=== PATIENT | female | born 1945 | race Caucasian/White ===

== ENCOUNTER 2020-09-04 13:45 | Outpatient (CLI) | payer MEDICARE, SELFPAY ==
--- NOTE | ~2020-09-04 | CT_ITS ---
EXAMINATION: CT abdomen pelvis w con INDICATION: Abdominal pain TECHNIQUE: Computed tomographic images of the abdomen and pelvis were obtained after the administrati on of 100 cc of Omnipaque 350 intravenous contrast. The dose-length product (DLP) was 945.38 mGy-cm. Automated exposure control and iterative reconstruction technique were employed. COMPARISON: 08/02/2004 FINDINGS: Minimal dependent atelectasis is present in the lung bases. The heart size is normal. The g allbladder is surgically absent. There is mild enlargement of the common bile duct and central intrah epatic ducts which is likely due to post cholecystectomy state. There is a 10 mm cyst in the liver do me. The spleen, pancreas, and adrenal glands are normal. The right kidney is unremarkable. Cysts of t he left kidney measure up to 10 mm. No pathologically enlarged abdominal or pelvic lymph nodes are id entified. There is no free intraperitoneal gas or evidence of bowel obstruction. Colonic diverticulos is is present without evidence of diverticulitis. The appendix is normal. There is a 3.3 x 3.1 cm fat attenuation mass of the mid ascending colon. There is mild lumbar spondylosis. IMPRESSION: 1. No CT correlate for the patient's symptoms. 2. Fat attenuation mass of the mid ascending colon, consistent with a lipoma. Reviewed, dictated and finalized at location A.
== END 2020-09-04 13:46 | disposition home or self-care (01) ==
PROVIDERS: PCP Family Medicine; Visit Provider Family Medicine
DX: R93.89 Abnormal findings on diagnostic imaging of other specified body structures (principal)
CPT/HCPCS: 74177; Q9967

== ENCOUNTER 2022-08-26 11:58 | Outpatient (CLI) | payer MEDICARE, SELFPAY ==
--- NOTE | ~2022-08-26 | US_ITS ---
EXAMINATION: US FNA w image guidance DATE: 08/26/2022 13:22 INDICATION: Neoplasm of unspecified behavior of digestive system. Left parotid mass. TECHNIQUE: The procedure and its benefits and risks were discussed with the patient. Risks specifically discusse d included bleeding. The patient verbalized understanding of the risks and agreed to proceed. The lef t face was prepped and draped in the usual sterile manner. 1% lidocaine was used for local anesthesi a. 6 passes were made with a 25G needle into the lesion under ultrasound guidance. There were no im mediate complications. FINDINGS: Grayscale ultrasound images demonstrate needles advanced into a 2.6 x 1.9 x 2.8 cm mass in left parot id gland for biopsy. IMPRESSION: 1. Ultrasound-guided fine needle aspiration of a mass in left parotid gland. Reviewed, dictated and finalized at location A.
== END 2022-08-26 11:59 | disposition home or self-care (01) ==
PROVIDERS: PCP Family Medicine; Visit Provider Otolaryngology
DX: D49.0 Neoplasm of unspecified behavior of digestive system (principal)
CPT/HCPCS: 10005; 88173; 88305

== ENCOUNTER 2022-09-03 07:56 | Outpatient (CLI) | payer MEDICARE, SELFPAY ==
--- NOTE | ~2022-09-03 | CT_ITS ---
EXAMINATION: CT soft tissue neck w con DATE: 09/03/2022 08:31 INDICATION: Neck mass. TECHNIQUE: Computed tomography (CT) of the neck was performed with 75 mL Omnipaque-350 intravenous co ntrast. Automated exposure control and iterative reconstruction technique were employed. The dose-basia gth product was 605.49 mGy-cm. COMPARISON: Ultrasound 01/10/2022 FINDINGS: There are likely changes of ocular lens replacement surgeries. In the superficial left paro tid gland, there is a 2.5 x 2.7 cm mass. A skin marker overlies this area. There are no pathologicall y enlarged lymph nodes. There is plaque in the proximal internal carotid arteries with less than 50% stenosis relative to normal distal artery lumen diameters. There is severe cervical spondylosis. IMPRESSION: 1. 2.7 cm mass in superficial left parotid gland. Fine-needle aspiration on 08/26/2022 demonstrated no nspecific cytology findings where the pathologist favored pleomorphic adenoma. Reviewed, dictated and finalized at location A. IMPRESSION: 1. 2.7 cm mass in superficial left parotid gland. Fine-needle aspiration on 08/01 demonstrated nonspecific cytology findings where the pathologist favored pleomorphic adenoma.
[2022-09-03 08:21] LABS: Estimated Glomerular Filt Rate 54
== END 2022-09-03 07:57 | disposition home or self-care (01) ==
PROVIDERS: PCP Family Medicine; Visit Provider Otolaryngology
DX: D49.0 Neoplasm of unspecified behavior of digestive system (principal)
CPT/HCPCS: 70491; Q9967

== ENCOUNTER → 2023-03-06 10:49 | Outpatient (CLI) | payer MEDICARE, SELFPAY ==
--- NOTE | ~2023-03-06 | CT_ITS ---
EXAMINATION: CT abdomen pelvis w con DATE: 03/06/2023 11:20 INDICATION: Unspecified abdominal pain. TECHNIQUE: Computed tomography (CT) of the abdomen and pelvis was performed with 100 mL Omnipaque 350 intravenous contrast. Automated exposure control and iterative reconstruction technique were employe d. The dose-length product was 915.18 mGy-cm. COMPARISON: CT abdomen pelvis 09/04/20 FINDINGS: The visualized portions of the lung bases demonstrate mild atelectasis. No pleural effusion . Cardiomegaly is noted. No pericardial effusion. There is a 10 mm cyst in the liver. There are spring es of cholecystectomy. The spleen, pancreas, and adrenal glands are normal. There is cortical thinnin g of the kidneys. There is diverticulosis of the colon without evidence of diverticulitis. There are no dilated loops of bowel. The appendix is normal. There is a lipoma in the ascending colon. There ar e no pathologically enlarged lymph nodes. There is no free intraperitoneal fluid. There is mild lumba r spondylosis. IMPRESSION: 1. No etiology for the patient's symptoms. Reviewed, dictated and finalized at location A.
[2023-03-06 11:12] LABS: Estimated Glomerular Filt Rate > 60
== END ==
PROVIDERS: PCP Family Medicine; Visit Provider Family Medicine
DX: R10.9 Unspecified abdominal pain (principal); R63.4 Abnormal weight loss; R53.83 Other fatigue; D51.0 Vitamin B12 deficiency anemia due to intrinsic factor deficiency; D64.9 Anemia, unspecified; E55.9 Vitamin D deficiency, unspecified
CPT/HCPCS: 74177; Q9967

== ENCOUNTER 2023-08-18 09:30 | Outpatient (CLI) | payer MEDICARE, SELFPAY ==
--- NOTE | ~2023-08-18 | XR_ITS ---
EXAMINATION: XR abdomen/kub 1V INDICATION: Left lower quadrant pain TECHNIQUE: Supine views of the abdomen were obtained on 2 radiographs. COMPARISON: CT, 03/06/2023 FINDINGS: The bowel gas pattern is nonspecific. There are no dilated loops of bowel. No free intraper itoneal gas is identified. The visualized lung bases are clear. Cholecystectomy clips are noted. Ther e is mild lumbar spondylosis. IMPRESSION: 1. No radiographic correlate for the patient's symptoms. Reviewed, dictated and finalized at location L.
== END 2023-08-18 09:31 | disposition home or self-care (01) ==
PROVIDERS: PCP Family Medicine; Visit Provider Nurse Practitioner
DX: R10.32 Left lower quadrant pain (principal); R11.0 Nausea
CPT/HCPCS: 74018

== ENCOUNTER 2023-09-04 00:53 | Day surgery (SDC) | payer MEDICARE, SELFPAY ==
[2023-08-26 12:54] VITALS: BMI 35.2
--- NOTE | 2023-09-03 15:24 | P.HP_ITS ---
History of Present Illness History of Present Illness Consent: Risks, benefits, and alternatives have been discussed and questions answered. Patient agrees to proceed with procedure. Chief complaint: epigastric pain, nausea Narrative: Phyllis Nixon is a 78 year old female ?has a history of fecal impaction August 2022 at [facility] [place] and had manual disimpaction and enema. Has hard pellet like stools with LLQ abdominal pain-pain radiates into left side/flank- has rectal pain and burning after BM. She also reports having to rock back and forth on toilet to help facilitate. LLQ pain improves if she has good BM but doesn't happen frequently. She has been having LLQ pain and constipation for greater than 10 years. Had episode of vomiting with LLQ pain a few weeks ago. Denies any fevers. Denies hx of diverticulitis. She does take hydrocodone 5/325 mg nightly for left knee pain. Also reports epigastric burning worse with spicy foods and nausea upon awakening which is somewhat new symptom as well.? Denies NSAIDs. Review of Systems Review of Systems: All systems reviewed & are unremarkable except as noted in HPI and below PMFSH Past Medical History Medical History Abnormal crack or tear of anus Epigastric burning sensation Irritable bowel syndrome with constipation LLQ abdominal pain Nausea Rectal pain Family History Family History Mother Diabetes mellitus Thyroid disorder Sibling Diabetes mellitus Grandparent Diabetes mellitus Thyroid disorder Father Heart disease Thyroid disorder Social History Social History Smoking status: Never smoker Alcohol intake: never Substance use: never Substance use type: does not use Living arrangements: with family Spiritual care concerns: No Meds Home Medications and Allergies Home Medications Medication Instructions Recorded Confirmed Type hydrocodone 5 mg-acetaminophen 325 1 tablet PO QHS PRN Pain 08/14/22 08/26/23 History mg tablet lorazepam 1 mg tablet 1 mg PO DAILY PRN Anxiety 08/14/22 08/26/23 History hydrocortisone 2.5 % topical cream 1 applic RECTAL BID #30 grams 08/18/23 08/26/23 Rx with perineal applicator omeprazole 40 mg capsule,delayed 40 mg PO DAILY #30 caps 08/18/23 08/26/23 Rx release levothyroxine 125 mcg tablet 125 mcg PO DAILY 08/26/23 08/26/23 History Allergies Allergy/AdvReac Type Severity Reaction Status Date / Time No Known Allergies Allergy Verified 09/04/23 09:32 Exam Resp: Auscultation: clear to auscultation bilaterally Cardio: Rate: regular rate Rhythm: regular rhythm GI: GI Palp: Yes Soft to palpation and No Tenderness to palpation present (GI) Assessment and Plan Assessment and plan (1) Epigastric burning sensation: Code(s): R10.13 - Epigastric pain Status: Acute Assessment and Plan: EGD with possible biopsy or dilatation or cautery. (2) Change in bowel habits: Code(s): R19.4 - Change in bowel habit Status: Acute Assessment and Plan: Colonoscopy with possible biopsy or polypectomy or cautery or injection of substances.
[2023-09-04 09:32] VITALS: BP 125/75; PULSE 90; RESP 18; TEMP 36.2; O2SAT 100
[2023-09-04] MEDS: LACTATED RINGERS 1,000 ML 150 ML IV CONT (09:49)
--- NOTE | 2023-09-04 10:44 | P.PNAN_ITS ---
Anes - Initial Pre Proc Eval Procedure: Operation Date: 09/04/23 11:15 Proposed Procedures p Esophagogastroduodenoscopy & Colonoscopy - Herb Duggan MD Date/Time: 09/04/23 10:44 Surgeon: Herb Duggan MD Pre Op Diagnosis: epigastric pain, nausea Patient Data Age: 78 Gender: F Height: 1.63 m Weight: 93.7 kg Last Vital Signs Temp 97.1 F L 09/04/23 09:32 Pulse 90 09/04/23 09:32 Resp 18 09/04/23 09:32 BP 125/75 09/04/23 09:32 Pulse Ox 100 09/04/23 09:32 O2 Del Method Room Air 09/04/23 09:32 Allergies Allergy/AdvReac Type Severity Reaction Status Date / Time No Known Allergies Allergy Verified 09/04/23 09:32 Home Medications Medication Instructions Recorded Confirmed Type hydrocodone 5 mg-acetaminophen 325 1 tablet PO QHS PRN Pain 08/14/22 08/26/23 History mg tablet lorazepam 1 mg tablet 1 mg PO DAILY PRN Anxiety 08/14/22 08/26/23 History hydrocortisone 2.5 % topical cream 1 applic RECTAL BID #30 grams 08/18/23 08/26/23 Rx with perineal applicator omeprazole 40 mg capsule,delayed 40 mg PO DAILY #30 caps 08/18/23 08/26/23 Rx release levothyroxine 125 mcg tablet 125 mcg PO DAILY 08/26/23 08/26/23 History Patient hx anesthesia problems: none Family hx anesthesia problems: none Results Review: All pre-operative results and documents have been reviewed as part of the pre- operative evaluation. [facility] Past Medical History Medical History Abnormal crack or tear of anus Epigastric burning sensation Irritable bowel syndrome with constipation LLQ abdominal pain Nausea Rectal pain Family History Family History Mother Diabetes mellitus Thyroid disorder Sibling Diabetes mellitus Grandparent Diabetes mellitus Thyroid disorder Father Heart disease Thyroid disorder Social History Social History Smoking status: Never smoker Alcohol intake: never Substance use: never Substance use type: does not use Living arrangements: with family Spiritual care concerns: No Anes - Eval Final PreProcedure Day of Procedure 09/04/23 10:44 Patient weight: obese Heart: regular rate and rhythm Lungs: clear to auscultation Airway: Mallampati scale class II Neurological: alert and oriented Last oral intake: >/= 8 hours ASA classification: III Emergent: no Anesthetic plan: proceed Anesthesia type and monitoring: general GIVS and standard monitoring Results Review: All pre-operative results and documents have been reviewed as part of the pre- operative evaluation. Informed Consent: The patient's anesthetic plan and its attendant risks and benefits were discussed with the patient/family/POA. Questions were solicited and answers provided to the satisfaction of the patient/family/POA.
--- NOTE | 2023-09-04 11:09 | SUR.OPER ---
EGD: [id number] COLON: Start 1114
--- NOTE | 2023-09-04 11:28 | SUR.OPER ---
1128-Switched to EGD scope (235).
--- NOTE | 2023-09-04 11:34 | SUR.OPER ---
Attempted colonoscopy. Unable to get past sigmoid colon.
[2023-09-04 11:36] VITALS: BP 134/81; PULSE 75; RESP 21; O2SAT 99
[2023-09-04 11:46] VITALS: BP 139/81; PULSE 75; RESP 20; O2SAT 99
[2023-09-04 11:56] VITALS: BP 146/94; PULSE 74; RESP 22; O2SAT 99
== END 2023-09-04 12:08 | disposition home or self-care (01) ==
PROVIDERS: PCP Family Medicine; Visit Provider Internal Medicine Gastroenterology
PROC: 0DJ08ZZ Inspection of Upper Intestinal Tract, Via Natural or Artificial Opening Endoscopic (ICD-10-PCS; CPT 43235; principal; 2023-09-04 11:15)
DX: K21.00 Gastro-esophageal reflux disease with esophagitis, without bleeding (principal); K58.1 Irritable bowel syndrome with constipation; K57.30 Diverticulosis of large intestine without perforation or abscess without bleeding; K63.89 Other specified diseases of intestine; E66.9 Obesity, unspecified; Z68.35 Body mass index [BMI] 35.0-35.9, adult; Z79.891 Long term (current) use of opiate analgesic
CPT/HCPCS: 43239; 45378; 88305; J2704; J7120

== ENCOUNTER 2024-04-04 15:38 | Emergency (ER) | payer MEDICARE, SELFPAY ==
--- NOTE | ~2024-04-04 | XR_ITS ---
EXAMINATION: XR foot RT min 3V DATE: 04/04/2024 16:24 INDICATION: Fall with swelling, bruising and pain at the right foot TECHNIQUE: Dorsoplantar, two oblique and lateral views of the right foot were obtained. COMPARISON: None. FINDINGS: Irregular cortical contour suggesting old healed fracture at the proximal metadiaphyseal region of th e fifth proximal phalanx. There is a small cortical fragment at the lateral aspect of the midfoot wit h suggestion of an adjacent donor site at the lateral margin of the cuboid which could represent an a vulsion fracture of the cuboid footplate of the dorsal calcaneocuboid ligament. Small fracture anteri or process of the calcaneus is considered less likely. There appears be an additional potential flake -like avulsion fracture at the dorsal margin of the navicula with differential including small enthes ophyte. No other lesions suspicious for acute fracture identified. 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 Large Achilles calcaneal spur. Addition al small enthesophyte at the lateral base of the fifth metatarsal. Soft tissue swelling at the latera l midfoot. IMPRESSION: 1. Suggestive of a small distracted avulsion fracture of the cuboid footplate of the dorsal calcaneoc uboid ligament. 2. Possible additional small capsular avulsion fracture versus enthesophytes at the dorsal aspect of the navicula. Reviewed, dictated and finalized at location A. IMPRESSION: 1. Suggestive of a small distracted avulsion fracture of the cuboid footplate o f the dorsal calcaneocuboid ligament. 2. Possible additional small capsular avulsion fracture versus enthesophytes at the dorsal aspect of the navicula.
--- NOTE | ~2024-04-04 | XR_ITS ---
EXAM: XR knee LT 3V DATE: 04/04/2024 16:24 HISTORY: fall, pain; best imaging . COMPARISON: 03/16/2017. FINDINGS: Uncomplicated left total knee arthroplasty hardware. Decreased mineralization. No fracture or dislocation. No lytic or blastic lesion. Patellar and quadriceps enthesopathy. No erosion or birgit osteal change. Soft tissues within normal limits. IMPRESSION: No acute osseous finding in the left knee. Reviewed, dictated and finalized at location K.
[2024-04-04 15:56] VITALS: BP 122/69; PULSE 90; RESP 17; TEMP 36.6; O2SAT 99
--- NOTE | 2024-04-04 18:03 | ED.FALL ---
HPI - Fall General Chief Complaint: Fall Stated Complaint: fall Time Seen by Provider: 04/04/24 16:52 Source: patient Mode of arrival: ambulatory Limitations: no limitations History of Present Illness HPI Narrative: Patient is a 79-year-old female who presents the ED with report of a fall. Patient reports he tripped over 1 of the concrete steps in her garage and fell. She landed on her left knee and twisted her right foot in the process. She did not hit her head or lose consciousness. She complains of most of the pain to her right lateral foot. Has been able to bear weight, but has pain with this. Has required using a cane for assistance with ambulation. Denies any numbness or tingling. She did also sustain an abrasion to her left hand, but denies pain. Tetanus status unknown. Related Data Home Medications Medication Instructions Recorded Confirmed hydrocodone 5 mg-acetaminophen 325 1 tablet PO QHS PRN Pain 08/14/22 10/01/23 mg tablet levothyroxine 125 mcg tablet 125 mcg PO DAILY 08/26/23 10/01/23 Allergies Allergy/AdvReac Type Severity Reaction Status Date / Time No Known Allergies Allergy Verified 04/04/24 15:38 Review of Systems Review of Systems: CONSTITUTIONAL: Denies fever, chills, or sweats. MUSCULOSKELETAL: See HPI. NEUROLOGIC: Denies HI, LOC, headache, dizziness, numbness, or weakness. All systems reviewed & are unremarkable except as noted in HPI and below PMFSH Past Medical History Medical History Abnormal crack or tear of anus Epigastric burning sensation Irritable bowel syndrome with constipation LLQ abdominal pain Nausea Rectal pain Family History Family History Mother Diabetes mellitus Thyroid disorder Sibling Diabetes mellitus Grandparent Diabetes mellitus Thyroid disorder Father Heart disease Thyroid disorder Social History Social History Smoking status: Never smoker Alcohol intake: never Substance use: never Substance use type: does not use Living arrangements: with family Spiritual care concerns: No Exam Narrative: GENERAL: Elderly, obese with BMI of 34.4, non-toxic, in no acute distress. HEAD: Normocephalic, atraumatic. RESPIRATORY: Airway patent, respirations nonlabored. CARDIOVASCULAR: Regular rate and rhythm without murmurs, rubs, or gallops. Pedal pulses 2+ and intact bilaterally. MUSCULOSKELETAL: Moves all extremities. No gross deformities. Mild swelling to left anterior knee with ecchymosis present. Tenderness along medial joint spaces of left knee. Sensation intact. Bruising and swelling noted to right foot dorsal lateral surface, with tenderness midfoot laterally. No significant tenderness along medial or lateral malleoli of R ankle. Sensation intact. Capillary refill intact. SKIN: Warm, dry, normal color. NEURO: A&O X3. Speech clear. Cranial nerves II-XII grossly intact. No ataxic movements. PSYCHIATRIC: Appropriate mood and affect. Normal interaction. Course Vital Signs Vital signs: Vital Signs Temperature 97.9 F 04/04/24 15:56 Pulse Rate 90 04/04/24 15:56 Respiratory Rate 17 04/04/24 15:56 Blood Pressure 122/69 04/04/24 15:56 Pulse Oximetry 99 04/04/24 15:56 Oxygen Delivery Room Air 04/04/24 15:56 Temperature 97.9 F 04/04/24 15:56 Pulse Rate 74 04/04/24 19:35 Respiratory Rate 15 04/04/24 19:35 Blood Pressure 117/64 04/04/24 19:35 Pulse Oximetry 97 04/04/24 19:35 Oxygen Delivery Room Air 04/04/24 15:56 MDM - Fall MDM Narrative Medical decision making narrative: Patient presented to ED status post ground level mechanical fall. Patient?s injury is consistent with musculoskeletal etiology. No signs of neurologic or vascular compromise on physical examination. Compartments are soft withou
[2024-04-04 19:35] VITALS: BP 117/64; PULSE 74; RESP 15; O2SAT 97
== END 2024-04-04 19:36 | disposition home or self-care (01) ==
PROVIDERS: Emergency Provider Physician Assistant; PCP Family Medicine
DX: S92.211A Displaced fracture of cuboid bone of right foot, initial encounter for closed fracture (principal); S92.251A Displaced fracture of navicular [scaphoid] of right foot, initial encounter for closed fracture; W01.0XXA Fall on same level from slipping, tripping and stumbling without subsequent striking against object, initial encounter
CPT/HCPCS: 29515; 73562; 73630; 99284

== ENCOUNTER 2024-08-22 13:45 | Outpatient (CLI) | payer MEDICARE, SELFPAY ==
--- NOTE | ~2024-08-22 | MR_ITS ---
EXAMINATION: MR brain/brain stem wo/w con DATE: 08/22/2024 14:36 INDICATION: Transient visual loss left eye. TECHNIQUE: Magnetic resonance imaging (MRI) of the brain and brainstem was performed without and with 19 mL MultiHance intravenous contrast. COMPARISON: None. 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 There are scattered areas of nonspecific i ncreased T2-weighted signal intensity in the cerebral white matter. There is no intracranial hemorrha ge, acute infarction, or abnormal intracranial mass lesion. The ventricles are normal in size. There are likely changes of ocular lens replacement surgeries. There is mild mucosal thickening in the para nasal sinuses. The mastoid air cells are normal. IMPRESSION: 1. 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 2. Mild nonspecific cerebral white matter disease, which likely represents chronic small vessel ische tyler disease. Reviewed, dictated and finalized at location A. IMPRESSION: 1. 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 2. Mild nonspecific cerebral white matter disease, which likely represents nut tapper kofi small vessel ischemic disease.
== END 2024-08-22 13:46 | disposition home or self-care (01) ==
LOC: MICIMG 13:45
PROVIDERS: PCP Family Medicine; Visit Provider Family Medicine
DX: H53.122 Transient visual loss, left eye (principal); R93.0 Abnormal findings on diagnostic imaging of skull and head, not elsewhere classified
CPT/HCPCS: 70553; A9577

== ENCOUNTER → 2024-09-26 11:29 | Outpatient (REF) | payer MEDICARE, SELFPAY | LOC: ANHLAB 11:29 | PROVIDERS: PCP Family Medicine; Visit Provider Plastic Surgery | DX: L72.3 Sebaceous cyst (principal) | CPT/HCPCS: 88305 ==

== ENCOUNTER 2024-10-14 08:30 | Outpatient (CLI) | payer MEDICARE, SELFPAY ==
--- NOTE | ~2024-10-14 | CT_ITS ---
CT of the Abdomen and Pelvis: Indication: Abdominal pain Technique: 2.5 mm axial scans were obtained through the abdomen and pelvis following intravenous adm inistration of 100 cc of Omnipaque 350. Dose reduction technique was used on this scan by utilizing a utomated exposure control and iterative reconstruction technique. The dose-length product (DLP) was 8 79.96 mGy-cm. COMPARISON: 03/06/2023 Findings: Scans through the lung bases are unremarkable. The liver, spleen, pancreas, adrenals and kidneys are within normal limits. Cholecystectomy clips are present. There are atherosclerotic calcifications of the aorta. No lymphadenopathy. No bowel obstruction or bowel wall thickening. There is sigmoid diverticulosis. Images through the pelvis were performed. Urinary bladder unremarkable. No pelvic mass seen. Status p ost hysterectomy. No ascites. Impression: No acute abnormalities seen. Reviewed, dictated and finalized at location . MENT CLERK Impression: No acute abnormalities seen.
[2024-10-14 09:00] LABS: Estimated Glomerular Filt Rate 54
== END 2024-10-14 08:31 | disposition home or self-care (01) ==
LOC: MICIMG 08:31
PROVIDERS: PCP Family Medicine; Visit Provider Family Medicine
DX: R10.9 Unspecified abdominal pain (principal)
CPT/HCPCS: 74177; Q9967

== ENCOUNTER 2025-05-03 08:22 | Emergency (ER) | payer MEDICARE, SELFPAY ==
--- NOTE | ~2025-05-03 | XR_ITS ---
EXAMINATION: XR chest 1V portable 05/03/2025 09:54 INDICATION: Dyspnea PROCEDURE: AP portable chest COMPARISON: 01/18/2011 FINDINGS: The lungs are clear. The cardiomediastinal silhouette is within normal limits. There are no pleural effusions. There is no pneumothorax suspected. IMPRESSION: 1: NO ACUTE CARDIOPULMONARY DISEASE. Reviewed, dictated and finalized at location A.
--- NOTE | 2025-05-03 08:24 | ECG_ITS ---
Test Date: 2025-05-03 08:30:57 Measurements Intervals [place] Rate: 80 P: 61 ND: 140 QRS: 70 QRSD: 145 T: 68 QT: 427 QTc: 494 Interpretive Statements SINUS RHYTHM RIGHT BUNDLE BRANCH BLOCK BASELINE ARTIFACT- I, II, III, AVR, AVL, AVF, V4-V6 ABNORMAL ECG No previous ECG available for comparison Electronically Signed On 05-03-2025 08:44:59 CDT by Donovan Melchor D.O.
[2025-05-03 08:26] VITALS: BP 144/71; PULSE 77; RESP 20; TEMP 36.5; O2SAT 98
--- OUTSIDE RECORDS SUMMARY | 2025-05-03 08:26 | XMS_ITS | Clinical Summary ---
Author Organization [facility] Address [address] [place] [address] Care Team Providers Care Scrap Charger Name Role Phone Nesha Yi MD Unavailable [phone] Source Comments [facility],non-[facility] Affiliates and Associated Physician Practices is amultiple site organization consisting of ambulatory clinics and hospital sitesin [place], [place], [place] and [place]. This disclosure is being madepursuant to the Care Everywhere program and may not contain all information available regarding this patient. Last updated 18.[facility] Allergies Active Allergy Reactions Criticality Noted Date Comments Adhesive Sensitivity 11/26/2017 Causes bruising Choline Fenofibrate Unknown 08/08/2011 Medications * Be aware that medications may not be up to date on this document. Alwaysverify current medications with the patient. HYDROcodone-ac etaminophen (Hull) 5-325 MG tablet Take 1 (one) tablet by mouth every 6 hours as needed for Pain Active acetaminophen (Tylenol) 325 MG tablet Take 2 (two) tablets by mouth every 6 hours Maximum allowable Acetaminophen amount = 4 Grams (4000 mg) / 24 hours. 3 Active albuterol HFA (Proventil; Ventolin; Proair) 108 (90 Base) MCG/ACT inhaler Take 2 (two) puffs by mouth as needed 2 Active levothyroxine (Synthroid) 75 MCG tablet Take 1 (one) tablet by mouth once daily Active LORazepam (Ativan) 1 MG tablet Take 1 (one) tablet by mouth as needed Active ALPRAZolam (Xanax) 0.25 MG tablet alprazolam 0.25 mg tablet TAKE 1 TABLET TWICE A DAY NEEDED Active doxycycline hyclate (Vibramycin) 100 MG capsule doxycycline hyclate 100 mg capsule Take 1 capsule twice a day by oral route for 7 days. Active Active Problems Problem Noted Date Diagnosed Date Parotid mass 12/11/2022 Primary osteoarthritis of right knee 05/19/2019 Infection of prosthetic left knee joint 12/15/19 18 Status post total knee replacement using cement, left 12/08/2017 Primary osteoarthritis of left knee 09/11/2017 Immunizations Immunization Administration Dates Next Due Loaded Pocket primary monoval ent 12+ yr 0.3mL Purple cap 06/03/2022,02/21/2021,02/21/2021,2020,01/31/2021 INFLUENZA VACCINE 09/10/2020, 7,10/08/2016,2015 INFLUENZA VACCINE, HIGH-DOSE , QUADR. (FLUZONE HIGH-DOSE QUADRIVALENT; 65Y+), 0.7 ML (HD-IIV4) 08/27/2021,10/04/2019,09/14/2018,2016,10/08/2016,10/02/2016 INFLUENZA VACCINE, QUADR. (F LUZONE; FLULAVAL; FLUARIX; AFLURIA QUADRIVALENT; 6MO+), 0.5 ML (IIV4) 10/15/2015 INFLUENZA VACCINE, TRIV. (FL UZONE; FLULAVAL; FLUARIX; AFLURIA TRIVALENT; 6MO+), 0.5 ML (IIV3) 09/14/2013 TDAP, HISTORIC VACCINE 03/30/2017 Social History Tobacco Use Types Packs/Day Years Used Date Smoking Tobacco: Never Smokeless Tobacco: Never Tobacco Cessation:Counseling Given: Not Answered Alcohol Use Standard Drinks/Week Comments No 0 (1 standard drink = 0.6 oz pur e alcohol) socially AUDIT-C Answer Date Recorded Q1: How often do you have a drink containing alcohol? Never 12/11/2022 Q2: How many drinks containi ng alcohol do you have on a typical day when you are drinking? Patient does not drink Q3: How often do you have si x or more drinks on one occasion? 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 Gender Identity Not on file Sexual Orientation Not on file Last Filed Vital Signs Vital Sign Reading Time Taken Comments Blood Pressure 136/83 02/27/2023 11:27 AM CDT Pulse 85 02/27/2023 11:27 AM CDT Temperature 36.6 C (97.8 F) 12/12/2022 11:24 AM SENIOR CREDIT OFFICER Respiratory Rate 18 12/12/2022 11:24 AM SENIOR CREDIT OFFICER Oxygen Saturation 98% 12/12/2022 11:24 AM SENIOR CREDIT OFFICER Inhaled Oxygen Concentration - - Weight 93 kg (205 lb) 02/27/2023 11:27 AM CDT Height 162.6 cm (5' 4) 02/27/2023 11:27 AM CDT Body Mass Index 35.19 02/27/2023 11:27 AM CDT Plan of Treatment Health Maintenance Due Date Last Done Comments BONE DENSITY TESTING 1945 PNEUMOCOCCAL VACCINE 50+ (1 of 1 - PCV) 01/31/1996 ZOSTER VACCINE (1 of 2) 01/31/1996 Respiratory Syncytial Virus (RSV) Vaccine Pt: or over 60 yrs (1 - 1-dose 75+ series) 2021 COVID-19 VACCINE ( season) 2024 06/03/2022, 02/21/2021, 02/21/2021, Additional history exists DEPRESSION SCREENING 11/30/2024 MEDICARE AWV CALENDAR YEAR 2024 INFLUENZA VACCINE (Season Ended) 2025 08/27/2021, 09/10/2020, 10/04/2019, Additional history exists DTAP/TDAP/TD VACCINES (2 - Td or Tdap) 03/30/2027 03/30/2017 HEPATITIS B VACCINE Aged Out No longe r eligible based on patient's age to complete this topic HIB VACCINE Aged Out No longer eligi ble based on patient's age to complete this topic HPV VACCINE Aged Out No longer eligi ble based on patient's age to complete this topic MENINGOCOCCAL (Group B) VACCINE SHARED DECISION-MAKING Aged Out No longer eligible based on patient's age to complete this topic MENINGOCOCCAL GROUPS A/C/Y/W VACCINE Aged Out No longer eligible based on patient's age to complete this topic Medical Devices Implanted Type Area Knot Borer Device Identifier Shelf Expiration Date Model / Serial / Lot Cmnt Bone Plc R 40gm Grn Implanted:Qty: 1 on 11/26/2017 by Vishnu Newell MD at [facility][note 3] Left: Knee [employer] 05/29/2022 [id number] / / [id number] Cmpnt Ptlr Ovl [id number] Gns2 Uhmwpe Kn Implanted:Qty: 1 on 11/26/2017 by Vishnu Newell MD at [facility][note 3] Left: Knee [employer] 09/09/2027 [id number] / / [id number] Bsplt Tib Journey 3 Kn Lt Implanted:Qty: 1 on 11/26/2017 by Vishnu Newell MD at [facility][note 3] Left: Knee [employer] 10/24/2027 [id number] / / [id number] Cmpnt Fem Kn Lt 5 Bicruciate Stab Implanted:Qty: 1 on 11/26/2017 by Vishnu Newell MD at [facility][note 3] Left: Knee [employer] 12/31/2024 [id number] / / [id number] Articular Insert Implanted:Qty: 1 on 11/26/2017 by Vishnu Newell MD at [facility][note 3] Left: Knee [employer] 03/15/2027 [id number] / / [id number] Articular Insert Implanted:Qty: 1 on 12/16/2017 by Vishnu Newell MD at [facility][note 3] Left: Knee [employer] 06/15/2027 [id number] / / [id number] Explanted Type Area Knot Borer Device Identifier Shelf Expiration Date Model / Serial / Lot Vis Cut Guide Jii Kit Implanted:Qty: 1 Explanted:Qty: 1 on 11/26/2017 at [facility][note 3] Left: Knee [employer] 01/12/2018 [id number] / / [id number] Insurance [employer] Member Subscriber Plan / Payer (Ef fective 2016-Present) Name:Phyllis Nixon Member ID:[id number] Relation to Subscriber:Self Name:Phyllis Nixon Subscriber ID:[id number] Payer ID:[id number] ([facility]) Type:Medicare-Managed Care Address: [facility] [id number] [place] [phone] [employer] MEDICARE ADV SELF PAY NO INSURANCE Member Subscriber Plan / Payer (Ef fective for All Dates) Name:Phyllis Nixon Member ID:Not on file Relation to Subscriber:Not on file Name:PHYLLIS NIXON Subscriber ID:Not on file (Home) Address: [address] [place] [phone] Payer ID:Not on file Group ID:Not on file Type:Self Pay Address: [place], [place] AETNA AETNA MEDICARE ADV Advance Directives * Full Code (Latest Code Status on File) Date Activated Date Inactivated Comments 12/11/2022 11:34 AM 12/12/2022 4:54 PM * Full Code Date Activated Date Inactivated Comments 12/17/2017 9:16 AM 12/22/2017 3:07 PM * Full Code Date Activated Date Inactivated Comments 12/15/2017 7:32 PM 12/17/2017 9:16 AM * Full Code Date Activated Date Inactivated Comments 11/26/2017 5:11 PM 11/30/2017 1:05 PM Care Teams Scrap Charger Relationship Specialty Start Date End Date Nesha Yi MD [address] [place] [id number] Family Medicine 12/15/17
--- OUTSIDE RECORDS SUMMARY | 2025-05-03 08:26 | XMS_ITS | CONTINUITY OF CARE DOCUMENT ---
Author Name varun bond Address Unknown Organization [facility] Address [address] [address] [facility] [address] [place] [address] Phone [phone] Care Team Providers Care Arts Therapist Name Role Phone Aleyda FOWELR, Albino Unavailable AEDLAIDA WILSON MD Unavailable ADELAIDA WILSON MD Unavailable PROBLEMS Condition Status Date Provider Notes HYPOTHYROIDISM active ? Antolin Barnes MD CHEST PAIN active Albino Maynard MD ABN NUC STRESS-10/08 NUC ISCHEMIA active ? Sonny Callahan RN OBESITY active Antolin Barnes MD EMPHYSEMA completed - Albino Maynard MD HTN-08/10 ECHO MOD LAE EF 45 -10/08 ECHO NL EF 55 active ? Albino Maynard MD Hyperlipidemia active Albino Maynard MD CARDIOMYOPATHY-05/11 NUC ISCHEMIA EF 41 completed - Albino Maynard MD NAUSEA active Albino Maynard MD Chronic bronchitis active Albino Maynard MD Dizziness active Albino Maynard MD Shortness of breath (SOB) active Albino trejo MD ENCOUNTERS Date Type Provider Location Encounter Diag nosis - In-person encounter Office Visit Albino Maynard MD [place] [facility] - In-person encounter Office Visit Albino Maynard MD [facility] - In-person encounter Office Visit Albino Maynard MD [place] [facility] Shortness of breath (SOB) - In-person encounter Office Visit Albino Maynard MD [facility] Dizziness - In-person encounter Office Visit Albino Maynard MD [place] [facility] Hyperlipidemia - In-person encounter Office Visit Albino Maynard MD [place] [facility] - In-person encounter Office Visit Albino Maynard MD [facility] - In-person encounter Office Visit Albino Maynard MD [facility] - In-person encounter Office Visit Albino Maynard MD [place] [facility] EMPHYSEMACARDIOMYOPATHY- NUC ISCHEMIA EF 41Chronic bronchitis - In-person encounter Office Visit Albino Maynard MD [place] [facility] - In-person encounter Office Visit Albino Maynard MD [place] [facility] - In-person encounter Office Visit Albino Maynard MD [facility] CHEST PAIN - In-person encounter Office Visit Albino Maynard MD [place] [facility] - In-person encounter Office Visit Albino Maynard MD [place] [facility] - In-person encounter Office Visit Albino Maynard MD [place] [facility] - In-person encounter Office Visit Albino Maynard MD [facility] - In-person encounter Office Visit Albino Maynard MD [facility] HTN-08/10 ECHO MOD LAE EF 45 -10/08 ECHO NL EF 55 - In-person encounter Office Visit Albino Maynard MD [facility] NAUSEA - In-person encounter Office Visit Albino Maynard MD [facility] CARDIOMYOPATHY-05/11 NUC ISCHEMIA EF 41 - In-person encounter Office Visit Albino Maynard MD [facility] - In-person encounter Office Visit Albnio Maynard MD [facility] - In-person encounter Office Visit Albino Maynard MD [facility] Hyperlipidemia - In-person encounter Office Visit Antolin Barnes MD [place] [facility] HYPOTHYROIDISMCHEST PAINABN NUC STRESS-10/08 NUC ISCHEMIAOBESITY VITAL SIGNS Date Observation Value Provider Body Mass Index (Ratio) 36.09 kg/m2 Shabbir Maynard MD blood pressure, cuff size regular [facility] blood pressure, diastolic 100 mm[Hg] [facility] blood pressure, systolic 137 mm[Hg] [facility] oxygen saturation, oximetry 99 % [facility] respiratory rate E&M 16 /min [facility] iller pulse rate 80 /min [facility] weight E&M 207 [lb_av] [facility] height E&M 63.5 [in_i] [facility] Body Mass Index (Ratio) 36.09 kg/m2 Shabbir Maynard MD blood pressure, diastolic 70 mm[Hg] Li [facility] blood pressure, systolic 112 mm[Hg] Maritza [facility] blood pressure, cuff size regular Ja rret blood pressure, diastolic 70 mm[Hg] Ja rret blood pressure, systolic 112 mm[Hg] Jar ret pulse rate 85 /min Mic erda y respiratory rate E&M 12 /min Mic oxygen saturation, oximetry 97 % Mic weight E&M 207 [lb_av] Mic erda y height E&M 63.5 [in_i] Mic Salcedo y Body Mass Index (Ratio) 35.85 kg/m2 Shabbir Maynard MD blood pressure, diastolic 70 mm[Hg] Kwasi Mar blood pressure, systolic 118 mm[Hg] Tarsha Mar oxygen saturation, oximetry 98 % Maru Mar respiratory rate E&M 16 /min Collins Mar pulse rate 87 /min Maru tejada weight E&M 205.6 [lb_av] Maru russell height E&M 63.5 [in_i] Maru tejada Body Mass Index (Ratio) 35.11 kg/m2 Shabbir Maynard MD blood pressure, diastolic 70 mm[Hg] Kwasi Mar blood pressure, systolic 110 mm[Hg] Tarsha Mar oxygen saturation, oximetry 98 % Maru Mar respiratory rate E&M 16 /min Collins Mar pulse rate 95 /min Maru tejada weight E&M 201.4 [lb_av] Maru russell height E&M 63.5 [in_i] Maru tejada Body Mass Index (Ratio) 35.57 kg/m2 Shabbir Maynard MD blood pressure, cuff size regular Ke rri Elmo blood pressure, diastolic 76 mm[Hg] Ke rri Elmo blood pressure, systolic 120 mm[Hg] Pura Borrego oxygen saturation, oximetry 98 % Kathryn Borrego respiratory rate E&M 18 /min Kathryn jacksonabhi pulse rate 91 /min Kathryn Argueta lder weight E&M 204 [lb_av] Kathryn Argueta lder height E&M 63.5 [in_i] Kathryn Argueta lder Body Mass Index (Ratio) 36.61 kg/m2 Shabbir Maynard MD blood pressure, cuff size regular Cy megan Pranav blood pressure, diastolic 80 mm[Hg] Cy sumitberniecelia Pranav blood pressure, systolic 120 mm[Hg] Justina cata Pranav oxygen saturation, oximetry 96 % Isabel Rock respiratory rate E&M 16 /min Isabel Rock pulse rate 102 /min Isabel Garcia l weight E&M 210 [lb_av] Isabel Campbel l height E&M 63.5 [in_i] Isabel Campbel l Body Mass Index (Ratio) 39.75 kg/m2 Shabbir Maynard MD blood pressure, diastolic 84 mm[Hg] Kwasi Mar blood pressure, systolic 151 mm[Hg] Tarsha Mar oxygen saturation, oximetry 97 % Maru Mar respiratory rate E&M 18 /min Collins Mar pulse rate 87 /min Maru tejada weight E&M 228.0 [lb_av] Maru russell height E&M 63.5 [in_i] Maru tejada blood pressure, diastolic 70 mm[Hg] Zhou Herron blood pressure, systolic 124 mm[Hg] Alessandro Herron pulse rate 89 /min Rupa Herron oxygen saturation, oximetry 96 % Rupa Herron respiratory rate E&M 18 /min Rupa Herron Body Mass Index (Ratio) 40.27 kg/m2 Carlo Herron weight E&M 231.0 [lb_av] Rupa Herron blood pressure, diastolic 79 mm[Hg] Kwasi Mar blood pressure, systolic 130 mm[Hg] Tarsha Mar pulse rate 71 /min Maru catsellanoson oxygen saturation, oximetry 93 % Maru Mar respiratory rate E&M 18 /min Collins Mar Body Mass Index (Ratio) 40.13 kg/m2 Arin Mar weight E&M 230.2 [lb_av] Maru russell Body Mass Index (Ratio) 38.18 kg/m2 Anea rose mary [facility] blood pressure, diastolic 89 mm[Hg] An eatris [facility] blood pressure, systolic 142 mm[Hg] Ane atris Brown pulse rate 78 /min Aneatris Brown oxygen saturation, oximetry 97 % Aneatris Brown respiratory rate E&M 17 /min Aneatri s Brown weight E&M 219 [lb_av] Aneatris Brown Body Mass Index (Ratio) 34.87 kg/m2 Anea rose mary [facility] blood pressure, diastolic 91 mm[Hg] An eatris [facility] blood pressure, systolic 137 mm[Hg] Ane atris Brown pulse rate 78 /min Aneatris Brown oxygen saturation, oximetry 95 % Aneatris Brown respiratory rate E&M 18 /min Aneatri s Brown weight E&M 200 [lb_av] Aneatris Brown Body Mass Index (Ratio) 38.32 kg/m2 Landeros i Elmo blood pressure, diastolic 80 mm[Hg] Ke rri Elmo blood pressure, systolic 154 mm[Hg] Ker ri Elmo pulse rate 76 /min Kathryn Ellie lder oxygen saturation, oximetry 97 % Kathryn Elmo respiratory rate E&M 16 /min Kathryn Harry roblero weight E&M 219 [lb_av] Kathryn Ellie lder Body Mass Index (Ratio) 37.27 kg/m2 Landeros i Elmo blood pressure, diastolic 89 mm[Hg] Ke rri Jananejocelyn blood pressure, systolic 124 mm[Hg] Pura ri Elmo pulse rate 64 /min Kathryn Ellie lder oxygen saturation, oximetry 96 % Kathryn Borrego respiratory rate E&M 17 /min Kathryn roblero weight E&M 213 [lb_av] Kathryn Argueta lder height E&M 63.5 [in_i] Kathryn Argueta lder blood pressure, diastolic 79 mm[Hg] Akash Callahan RN blood pressure, systolic 122 mm[Hg] Sonny Callahan RN pulse rate 83 /min Sonny Callahan RN oxygen saturation, oximetry 95 % Sonny Callahan RN respiratory rate E&M 16 /min Sonny clancy RN weight E&M 202.2 [lb_av] Sonny Callahan RN blood pressure, diastolic 88 mm[Hg] Ke rri Elmo blood pressure, systolic 120 mm[Hg] Pura Borrego pulse rate 75 /min Kathryn Argueta lder oxygen saturation, oximetry 97 % Kathryn Borrego respiratory rate E&M 18 /min Kathryn roblero weight E&M 197.8 [lb_av] Kathryn moe blood pressure, diastolic 68 mm[Hg] Akash Callahan RN blood pressure, systolic 103 mm[Hg] Sonny Callahan RN pulse rate 69 /min Sonny Callahan RN oxygen saturation, oximetry 99 % Sonny Cotas RN respiratory rate E&M 16 /min Sonny clancy RN weight E&M 188 [lb_av] Sonny Callahan RN blood pressure, diastolic 74 mm[Hg] Akash Callahan RN blood pressure, systolic 115 mm[Hg] Sonny Callahan RN pulse rate 66 /min Sonny Callahan RN oxygen saturation, oximetry 99 % Sonny Callahan RN respiratory rate E&M 16 /min Sonny clancy RN weight E&M 181 [lb_av] Sonny Callahan RN blood pressure, diastolic, left arm 75 mm [Hg] Sonny Callahan RN blood pressure, systolic, left arm 109 mm [Hg] Sonny Callahan RN blood pressure, diastolic, right arm 73 m m[Hg] Sonny Callahan RN blood pressure, systolic, right arm 102 m m[Hg] Sonny Callahan RN blood pressure, diastolic 73 mm[Hg] Akash trevino Callahan RN blood pressure, systolic 102 mm[Hg] Sonny Callahan RN pulse rate 71 /min Sonny Clalahan RN oxygen saturation, oximetry 99 % Sonny Cotas RN respiratory rate E&M 20 /min Sonny aldanas RN weight E&M 190 [lb_av] Sonny Callahan RN blood pressure, diastolic 76 mm[Hg] Scales blood pressure, systolic 133 mm[Hg] David Silverman pulse rate 72 /min Jorge Silverman oxygen saturation, oximetry 99 % Jorge Silverman respiratory rate E&M 16 /min Jorge Silverman weight E&M 210 [lb_av] Jorge Herrera blood pressure, diastolic 83 mm[Hg] Kwasi cruz [facility] blood pressure, systolic 142 mm[Hg] Tarsha rosales [facility] pulse rate 74 /min Mary [facility] oxygen saturation, oximetry 98 % Mary [facility] respiratory rate E&M 16 /min Mary [facility] weight E&M 210 [lb_av] Mary [facility] blood pressure, diastolic 83 mm[Hg] Da kaiserlavonne Barrie blood pressure, systolic 113 mm[Hg] Syed Sood pulse rate 85 /min Heather Sood oxygen saturation, oximetry 98 % Heather Sood respiratory rate E&M 16 /min Cal Sood weight E&M 220 [lb_av] Heather Sood blood pressure, diastolic 85 mm[Hg] Akash Callahan RN blood pressure, systolic 133 mm[Hg] Sonny Callahan RN pulse rate 75 /min Sonny Callahan RN oxygen saturation, oximetry 98 % Sonny Callahan RN respiratory rate E&M 18 /min Sonny clancy RN weight E&M 218 [lb_av] Sonny Callahan RN blood pressure, diastolic 64 mm[Hg] Fe maría Aurelia blood pressure, systolic 103 mm[Hg] Fel icia [place] pulse rate 80 /min Flor [place] oxygen saturation, oximetry 97 % Flor Aurelia respiratory rate E&M 16 /min Flor Aurelia weight E&M 223 [lb_av] Flor Aurelia ALLERGIES Allergy Name Onset Date Reaction Criticality Status TRILIPX High Criticality suspende d RESULTS Date Observation Value Provider Reference Range Interpretation Location folate, serum 14.2 NG/MLM [facility] 5.6 - 45.8 vitamin b12, serum 365.4 pg/mL [facility] 211.0 - 946.0 very low density lipoproteins 30.2 mg/dL [facility] 5.0 - 40.0 LDL/HDL (low-density lipoprotein/high-de nsity lipoprotein) ratio 3.0 RATIO [facility] - lipoprotein, beta, serum, point, quantitative, calculated 147.8 (?) [facility] 0.0 - 100.0 High HDL cholesterol, serum 50.0 mg/dL [facility] 45.0 - 65.0 cholesterol, serum 228.0 mg/dL [facility] 0.0 - 200.0 High triglyceride, serum, fasting 151.0 mg/dL [facility] 0.0 - 150.0 High ferritin, serum 125.2 ng/mL [facility] 13.0 - 150.0 anion gap, serum 12.9 [facility] - albumin/globulin ratio, serum 2.6 g/dL [facility] 1.1 - 2.5 High globulin, serum 2.6 [facility] 2.3 - 3.8 urea nitrogen/creatinine ratio, serum 13.8 [facility] - Estimated Glomerular Filtration Rate (calc) 75.4 (?) [facility] 59.0 - chloride, serum 105.1 mmol/L [facility] 98.0 - 107.0 potassium, serum 4.5 mmol/L [facility] 3.5 - 5.1 sodium, serum 145.0 mmol/L [facility] 136.0 - 145.0 creatinine, serum 0.8 mg/dL [facility] 0.5 - 1.0 carbon dioxide, venous blood 27.0 mmol/L [facility] 23.0 - 31.0 albumin, serum 4.2 g/dL [facility] 3.5 - 5.2 calcium, serum 9.4 mg/dL [facility] 8.6 - 10.2 aspartate aminotransferase (SGOT), serum 14.0 1/L [facility] 0.0 - 32.0 alkaline phosphatase, serum 110.0 1/L [facility] 40.0 - 130.0 alanine aminotransferase (SGPT), serum 12.0 1/L [facility] 0.0 - 33.0 protein, total, serum 6.8 g/dL [facility] 6.6 - 8.7 bilirubin, serum, total 0.3 mg/dL [facility] 0.0 - 1.2 urea nitrogen, blood 11.0 mg/dL [facility] 8.0 - 23.0 blood glucose, random [facility].0 [facility] High red blood cell distribution width, size density 44.[address] [facility] - immature granulocytes, percentage of total cells, blood 0.7 % [facility] - nucleated red blood cells as percent of blood leukocytes 0.0 % [facility] - red blood cell (erythrocyte) count, per high power field 0.0 10*3/UL [facility] - eosinophils as percent of blood leukocytes 2.5 % [facility] - neutrophils as percent of blood leukocytes 73.0 % [facility] - Absolute Neutrophils 5.0 CELLS/UL [facility] 1.5 - 7.8 basophils as percent of blood leukocytes 0.6 % [facility] - Absolute Basophils 0.0 CELLS/UL [facility] 0.0 - 0.2 monocytes as percent of blood leukocytes 7.5 % [facility] Monocytes 0.5 CELLS/UL [facility] 0.2 - 1.0 lymphocytes as percent of blood leukocytes 15.7 % [facility] - Absolute Lymphocytes 1.1 CELLS/UL [facility] 0.9 - 3.9 mean platelet volume 9.9 (?) [facility] count 267.0 THOUSAND/UL [facility] 100.0 - 400.0 mean corpuscular hemoglobin concentration, RBC 31.0 G/DL [facility] 31.0 - 38.0 mean corpuscular hemoglobin, RBC 28.7 pg [facility] 25.0 - 35.0 mean corpuscular volume, RBC 92.4 fL [facility] 75.0 - 100.0 hematocrit, blood 43.5 % [facility] 35.0 - 55.0 hemoglobin, blood 13.5 g/dL [facility] 11.5 - 16.5 erythrocyte count, whole blood 4.7 MILLION/UL [facility] 3.5 - 5.5 iron, serum 76.0 ug/dL [facility] 25.0 - 156.0 iron saturation percent, serum 21.5 % [facility] 20.0 - 50.0 iron binding capacity, total 354.2 ug/dL [facility] 250.0 - 450.0 prothrombin time (patient) 10.3 s [facility] 9.0 - 11.5 international normalized ratio (INR) 0.9 [facility] 0.9 - 1.1 hemoglobin A1C, blood, as % of total hemoglobin 5.6 % [facility] 4.0 - 5.6 reticulocyte count, absolute 0.073 10*6 CELLS/UL [facility] - reticulocyte count, blood, uncorrected 1.54 % [facility] 0.50 - 2.00 thyroid stimulating hormone, serum 9.15 u[IU]/mL [facility] 0.270-4.20 High thyroxine, serum, free 0.82 ng/dL [facility] 0.93-1.7 Low triiodothyronine (T3), serum 116 ng/dL [facility] Units converted. See lab report for original value. Normal thyroxine, serum, total 6.76 ug/dL [facility] 4.5-11.7 Normal calcium, serum 9.4 mg/dL [facility] 8.6-10.0 Normal blood glucose, random 96 mg/dL [facility] 74-109 Normal eGFR if 107 mL/min/{1.73_ m2} [facility] >60 Normal eGFR if not 88 mL/min/{1.73_ m2} [facility] >60 Normal urea nitrogen/creatinine ratio, serum 25.7 ratio [facility] 8.0-25.0 High creatinine, serum 0.7 mg/dL [facility] 0.50-0.90 Normal urea nitrogen, blood 18 mg/dL [facility] 6-20 Normal carbon dioxide, venous blood 22 mmol/L [facility] 22-29 Normal chloride, serum 101 MEQ/L [facility] 98-107 Normal potassium, serum 4.0 MEQ/L [facility] 3.5-5.1 Normal sodium, serum 139 MEQ/L [facility] 136-145 Normal thyroid stimulating hormone, serum 8.710 u[IU]/mL [facility] LDL cholesterol, serum 95 mg/dL [facility] cholesterol, serum 187 mg/dL [facility] platelet count 188 10*3/mm3 [facility] hematocrit, blood 43.4 % [facility] lipoprotein, beta, serum, point, quantitative, calculated 108 mg/dL [facility] cholesterol, serum 188 mg/dL [facility] international normalized ratio (INR) 1.0 [facility] thyroid stimulating hormone, serum 5.000 u[IU]/mL [facility] alanine aminotransferase (SGPT), serum 16 1/L [facility] aspartate aminotransferase (SGOT), serum 17 1/L [facility] creatinine, serum 0.68 mg/dL [facility] potassium, serum 3.8 mmol/L [facility] sodium, serum 142 mmol/L [facility] alanine aminotransferase (SGPT), serum 13 1/L [facility] (6-40) Normal aspartate aminotransferase (SGOT), serum 15 1/L [facility] (10-35) Normal alkaline phosphatase, serum 67 1/L [facility] (33-130) Normal bilirubin, serum, total 0.4 mg/dL [facility] (0.2-1.2) Normal albumin/globulin ratio, serum 2.0 (calc) [facility] (1.0-2.1) Normal globulins, serum, total 2.2 G/DL (CALC) [facility] (2.2-3.9) Normal albumin, serum 4.4 g/dL [facility] (3.6-5.1) Normal protein, total, serum 6.6 g/dL [facility] (6.2-8.3) Normal calcium, serum 9.3 mg/dL [facility] (8.6-10.2) Normal carbon dioxide, venous blood 21 mmol/L [facility] (21-33) Normal chloride, serum 107 mmol/L [facility] (98-110) Normal potassium, serum 3.9 mmol/L [facility] (3.5-5.3) Normal sodium, serum 141 mmol/L [facility] (135-146) Normal urea nitrogen/creatinine ratio, serum NOT APPLICABLE (calc) [facility] (6-22) Estimated Glomerular Filtration Rate (calc) 76 mL/min/{1.73_ m2} [facility] (> OR = 60) Normal creatinine, serum 0.92 mg/dL [facility] (0.60-1.18) Normal urea nitrogen, blood 21 mg/dL [facility] (7-25) Normal blood glucose, random 82 mg/dL [facility] (65-99) Normal cholesterol/HDL ratio, serum, percent 4.3 (calc) [facility] (< OR = 5.0) Normal LDL cholesterol, serum 134 MG/DL (CALC) [facility] (<130) High triglyceride, serum, fasting 151 mg/dL [facility] (<150) High HDL cholesterol, serum 49 mg/dL [facility] (> OR = 46) Normal cholesterol, serum 213 mg/dL [facility] (125-200) High troponin I <0.012 Etienne Rudd Large VLDL Particle 3.8 nmol/L [facility] (<= 2.7) High number of large High Density Lipoprotein particles < 0.7 umol/L [facility] (>= 4.8) Low LDL Size 20.8 nm [facility] (> 20.5) triglyceride, serum, fasting 193 mg/dL [facility] (<150) High Total HDL-cholesterol direct 46 mg/dL [facility] (>40) Total LDL-cholesterol direct 132 mg/dL [facility] (<100) High cholesterol, serum 217 mg/dL [facility] (<200) High Small Low Density Lipoprotein Particle 1050 nmol/L [facility] (<= 527) High LDL particle concentration (lipoprotein panel), risk categories correspond to NCEP categories for LDL cholesterol (on a percentile equivalent basis) 1799 nmol/L [facility] (<1000) High HISTORY OF MEDICATION USE Medication Status Instructions Dates Provider Indications Com ments omeprazole unspecified unspecified active Mic ilia lorazepam 0.5 mg tablet active as needed Maru Mar nitrofurantoin macrocrystal 100 mg capsule completed Take 1 by mouth twice a day - Kathryn Borrego hydrocodone-aceta minophen 5-325 mg tablet active tablet by mouth as needed Kathryn Borrego Euthyrox 75 mcg tablet active once a day Kathryn Borrego RANEXA 500 MG ORAL TABLET EXTENDED RELEASE 12 HOUR completed ONE TAB TWICE DAILY for chronic angina - Isabel Rock PROZAC CAPSULE completed take as directed - Isabel Rock CHOLESTYRAMINE PACKET completed one pack daily - Isable Pranav FLUOXETINE HCL 10 MG ORAL TABLET completed 1 tablet daily - Albino Maynard MD LIOTHYRONINE SODIUM 25 MCG ORAL TABLET completed 1 tab daily - Albino Maynard MD ARMOUR THYROID 30 MG ORAL TABLET completed - Sonny Callahan RN ZOCOR 40 MG ORAL TABLET completed ONE TAB. AT BEDTIME - Sonny Callahan RN CRESTOR 10 MG ORAL TABLET completed ONE TAB. DAILY - Tan Rush VOLTAREN 1 % TRANSDERMAL GEL completed apply twice daily as needed - Kathryn Borrego ASPIRIN 81 MG ORAL TABLET completed ONE TAB. DAILY - Kathryn Borrego XANAX 0.5 MG ORAL TABLET completed ONE TAB. DAILY pm - Kathryn Borrego CARVEDILOL 6.25 MG ORAL TABLET completed ONE TAB. TWICE DAILY - Kathryn Borrego RANEXA 1000 MG ORAL TABLET EXTENDED RELEASE 12 HOUR completed ONE TAB. TWICE DAILY for chronic angina - Albino Maynard MD TRAMADOL HCL 50 MG ORAL TABLET completed 1 tablet every 8 hours as needed - Aneatrdorita Olivo PRILOSEC 40 MG ORAL CAPSULE DELAYED RELEASE completed 1 tab by mouth daily - Sonny Callahan RN TRILIPIX 135 MG ORAL CAPSULE DELAYED RELEASE completed 1 capsule daily - Tan Rush TRILIPIX 135 MG ORAL CAPSULE DELAYED RELEASE completed ONCE DAILY - Heather Sood LORAZEPAM 0.5 MG ORAL TABLET completed twice daily as needed - Albino Maynard MD SYNTHROID 75 MCG ORAL TABLET completed ONE TAB. DAILY - Kathryn Borrego DARVOCET-N 100 100-650 MG TABS completed as needed - Mary Martinez SOCIAL HISTORY Date Observation Value Provider drug use no [facility] alcohol use no [facility] passive cigarette sm marbella exposure no [facility] smoking status Never smoker [facility] drug use no Kim Ventimig ashley [facility] alcohol use no Kim Ventimig ashley [facility] smoking status Never smoker Kim Flores iglia [facility] social history E&M Marital Statu s: L irma with family/friends E thnicity: Smoking History: P wilbert has never smoked. Albino Maynard MD social history reviewed E&M revi ewed - no changes required Albino Maynard MD physical exercise, frequency, days per week no Maru Mar caffeine use, averag e drinks per day yes Maru Mar passive cigarette sm marbella exposure no MaruWillow Mar smoking status Never smoker Maru Meza cristine social history E&M Marital Statu s: L irma with family/friends E thnicity: Smoking History: P wilbert has never smoked. Albino Maynard MD social history reviewed E&M revi ewed - no changes required Albino Maynard MD physical exercise, frequency, days per week no Maru Mar caffeine use, averag e drinks per day yes Maru Mar passive cigarette sm marbella exposure no MaruWillow Mar smoking status Never smoker Maru Meza cristine social history E&M Marital Statu s: L irma with family/friends E thnicity: Smoking History: P wilbert has never smoked. Albino Maynard MD social history reviewed E&M revi ewed - no changes required Albino Maynard MD physical exercise, frequency, days per week no Kathryn Hartmanganga caffeine use, averag e drinks per day yes Kathryn Hartmanganga passive cigarette sm marbella exposure no Kathryn Peguerojocelyn smoking status Never smoker Kathryn noriegaer social history E&M Marital Statu s: L imra with family/friends E thnicity: Smoking History: P wilbert has never smoked. Albino Maynard MD social history reviewed E&M revi ewed - no changes required Albino Maynard MD physical exercise, frequency, days per week no Isabel Rock alcohol counseling no Isabel lira In the past 3 months , have you been waking up wanting to use drugs? (CAGE substance use question #4) N Isabel Rock In the past 3 months , have you felt guilty or bad about using drugs? (CAGE substance use question #3) N Isabel Rock In the past 3 months , has anyone annoyed you by telling you to cut down or stop using drugs? (CAGE substance use question #2) N Isabel Rock In the past 3 months , have you felt you should cut down or stop using drugs?(CAGE substance use question #1) N Isabel Rock alcohol use, average drinks per day social basis only Isabel Rock alcohol use yes Isabel fisher caffeine use, averag e drinks per day yes Isabel Rock drug use none Isabel fisher passive cigarette sm marbella exposure no Isabel Rock smoking status Never smoker Isabel powell social history reviewed E&M revi ewed - no changes required Albino Maynard MD physical exercise, frequency, days per week no Maru Mar alcohol counseling no Maru Mar In the past 3 months , have you been waking up wanting to use drugs? (CAGE substance use question #4) N Maru Mar In the past 3 months , have you felt guilty or bad about using drugs? (CAGE substance use question #3) N Maru Mar In the past 3 months , has anyone annoyed you by telling you to cut down or stop using drugs? (CAGE substance use question #2) N Maru Mar In the past 3 months , have you felt you should cut down or stop using drugs?(CAGE substance use question #1) N Maru Mar alcohol use, average drinks per day social basis only Maru Mar alcohol use yes Maru Nixon jasminrenzo caffeine use, averag e drinks per day yes Maru Mar drug use none Maru Nixon jasminrenzo passive cigarette sm marbella exposure no Maru Mar smoking status Never smoker Maru Derrick colunga social history reviewed E&M revi ewed - no changes required Albino Maynard MD number of grandchildren Albino Herron physical exercise, frequency, days per week no Rupa Herron alcohol counseling no Rupa irvin In the past 3 months , have you been waking up wanting to use drugs? (CAGE substance use question #4) N Rupa Herron In the past 3 months , have you felt guilty or bad about using drugs? (CAGE substance use question #3) N Rupa Herron In the past 3 months , has anyone annoyed you by telling you to cut down or stop using drugs? (CAGE substance use question #2) N Rupa Herron In the past 3 months , have you felt you should cut down or stop using drugs?(CAGE substance use question #1) N Rupa Herron alcohol use, average drinks per day social basis only Rupa Herron alcohol use yes Rupa Herron caffeine use, averag e drinks per day yes Rupa Herron drug use none Rupa Herron passive cigarette sm marbella exposure no Rupa Herron smoking status Never smoker Rupa Herron social history reviewed E&M revi ewed - no changes required Albino Maynard MD physical exercise, frequency, days per week no Maru Mar alcohol counseling no Maru Mar In the past 3 months , have you been waking up wanting to use drugs? (CAGE substance use question #4) N Maru Mar In the past 3 months , have you felt guilty or bad about using drugs? (CAGE substance use question #3) N Maru Mar In the past 3 months , has anyone annoyed you by telling you to cut down or stop using drugs? (CAGE substance use question #2) N Maru Mar In the past 3 months , have you felt you should cut down or stop using drugs?(CAGE substance use question #1) N Maru Mar alcohol use, average drinks per day social basis only Maru Mar alcohol use yes Maru Nixon terrell caffeine use, averag e drinks per day yes Maru Mar drug use none Maru Nixon terrell passive cigarette sm marbella exposure no Maru Mar smoking status Never smoker Maru Derrick colunga social history reviewed E&M revi ewed - no changes required Albino Maynard MD smoking status Never smoker Jamila trevino social history reviewed E&M revi ewed - no changes required Albino Maynard MD social history reviewed E&M reviewed Albino Maynard MD social history reviewed E&M reviewed Sonny Callahan RN alcohol counseling no Kathryn bales In the past 3 months , have you been waking up wanting to use drugs? (CAGE substance use question #4) N Kathryn Elmo In the past 3 months , have you felt guilty or bad about using drugs? (CAGE substance use question #3) N Kathryn Elmo In the past 3 months , has anyone annoyed you by telling you to cut down or stop using drugs? (CAGE substance use question #2) N Kathryn Elmo In the past 3 months , have you felt you should cut down or stop using drugs?(CAGE substance use question #1) N Kathryn Elmo drug use none Albino Palmer passive cigarette sm marbella exposure no Kathryn Elmo smoking status never smoker Kathryn Indra millard social history reviewed E&M reviewed Sonny Callahan RN social history reviewed E&M reviewed Sonny Callahan RN social history reviewed E&M reviewed Sonny Callahan RN social history reviewed E&M reviewed Sonny Callahan RN social history reviewed E&M reviewed Sonny Callahan RN social history reviewed E&M reviewed Sonny Callahan RN social history reviewed E&M reviewed Albino Maynard MD social history reviewed E&M reviewed Albino Maynard MD drug use none Albino Palmer social history reviewed E&M reviewed Sonny Callahan RN social history E&M Marital Statu s: L irma with family/friends E thnicity: Antolin Barnes MD social history reviewed E&M reviewed Antolin Barnes MD physical exercise, frequency, days per week no [employer] caffeine use, averag e drinks per day yes [employer]Log[employer] alcohol use, average drinks per day social basis only [employer] smoking status Non-smoker [employer] MENTAL STATUS Date Observation Value Provider assessment of judgme nt and insight E&M Alert and oriented to time, place and person. Mood and affect are normal. Albino Maynard MD assessment of judgme nt and insight E&M Alert and oriented to time, place and person. Mood and affect are normal. Sonny Callahan RN assessment of judgme nt and insight E&M Alert and oriented to time, place and person. Mood and affect are normal. Sonny Callahan RN assessment of judgme nt and insight E&M Alert and oriented to time, place and person. Mood and affect are normal. Sonny Callahan RN assessment of judgme nt and insight E&M Alert and oriented to time, place and person. Mood and affect are normal. Sonny Callahan RN assessment of judgme nt and insight E&M Alert and oriented to time, place and person. Mood and affect are normal. Sonny Callahan RN assessment of judgme nt and insight E&M Alert and oriented to time, place and person. Mood and affect are normal. Sonny Callahan RN assessment of judgme nt and insight E&M Alert and oriented to time, place and person. Mood and affect are normal. Sonny Callahan RN assessment of judgme nt and insight E&M Alert and oriented to time, place and person. Mood and affect are normal. Albino Maynard MD assessment of judgme nt and insight E&M Alert and oriented to time, place and person. Mood and affect are normal. Albino Maynard MD assessment of judgme nt and insight E&M Alert and oriented to time, place and person. Mood and affect are normal. Sonny Callahan RN assessment of judgme nt and insight E&M Alert and oriented to time, place and person. Mood and affect are normal. Antolin Barnes MD FAMILY HISTORY Family Member Condition Father Family History of Co ronary Artery Disease: INSURANCE PROVIDERS Payer name Policy type / Coverage type Daniel red republican ID [employer] MEDICARE [facility] ADVANTAGE O Medicare [id number] ADVANCE DIRECTIVES Name Date DISCUSSED - NO DECISION MADE TREATMENT PLAN Date Name Performer [id number],C,on replacemen t therapy [place] Lakisha [facility] [id number],C,will get upda karely [facility] [id number],C,BP 112/70 at goal [place] Lakisha [facility] [id number],C,W ith activity and associated with fatigue and episodes of chest pain-concern for angina E KG SR with RBBB H ave recommended echo to look for any LV dysfunction or WMA W ill do stress test to r/o ischemia unable to ambulate d/t chronic knee replacement. Is in need of rt knee replacement O rders: 9 9214 MOD 30-39min (CPT-59828) C omplete Echo (CPT-35430) S tress Regadenoson (CPT-99523) [facility] [id number],S, Albino trevino MD [id number],S, Albino trevino MD [id number],S, Albino trevino MD [id number],S,M ultiple negative caths after false positive stress tests. Albino Maynard MD [id number],S,ECHO normal. Albino Maynard MD [id number],S, Albino trevino MD [id number],S, Albino trevino MD [id number],S, Albino trevino MD [id number],S, Albino trevino MD [id number],N,ECHO and tele monitor Albino Maynard MD [id number],B, Albino trevino MD Cardiology Albino Maynard MD Cardiology Albino Maynard MD Cardiology Albino Maynard MD Cardiology Albino Maynard MD Cardiology Albino Maynard MD Cardiology:on replacement therap y Kim Lakisha [facility] Cardiology:will get updated labs from PCP Kim Banuelos [facility] Cardiology:BP 112/70 at goal [place] davidcelia Lakisha [facility] Cardiology:With acti vity and associated with fatigue and episodes of chest pain-concern for angina E KG SR with RBBB H ave recommended echo to look for any LV dysfunction or WMA W ill do stress test to r/o ischemia unable to ambulate d/t chronic knee replacement. Is in need of rt knee replacement O rders: 9 9214 MOD 30-39min (CPT-59332) C omplete Echo (CPT-71513) S tress Regadenoson (CPT-63694) Kim Lakisha [facility] Cardiology Albino Maynard MD Cardiology Albnio Maynard MD Cardiology Albino Maynard MD Cardiology:Multiple negative caths after false positive stress tests. Albino Maynard MD Cardiology:ECHO normal. Albino ham MD Cardiology Albino Maynard MD Cardiology Albino Maynard MD Cardiology Albino Maynard MD Cardiology Albino Maynard MD Cardiology:ECHO and tele monitor Albino Maynard MD Cardiology Albino Maynard MD Cardiology Follow up Albino nolasco MD Cardiology Follow up Albino nolasco MD Cardiology Follow up Albino nolasco MD Cardiology Follow up Albino nolasco MD Cardiology followup Albino trevino MD Cardiology followup Albino trevino MD Cardiology followup Albino trevino MD Cardiology followup Albino trevino MD Cardiology followup Albino Joseada uriel FOWLER Cardiology Albino Aleyda FOWLER Cardiology Albino Aleyda FOWLER Cardiology Albino Aleyda FOWLER Cardiology Albino Aleyda FOWLER Cardiology Albino Aleyda FOWLER Cardiology Albino Aleyda FOWLER Cardiology Albino Aleyda FOWLER Cardiology Albino Aleyda FOWLER Cardiology Albino Aleyda FOWLER Cardiology Albino Joseadauriel FOWLER Cardiology Albino Joseadauriel FOWLER Cardiology Albino Aleyda FOWLER Cardiology Albino Joseadauriel FOWLER Cardiology Albino Joseadauriel FOWLER Cardiology Albino Joseadauriel FOWLER Cardiology Albino Aleyda FOWLER follow up Albino Maynard MD follow up Albino Maynard MD followm up Albino Maynard MD followm up Albino Maynard MD followm up Albino Aleyda FOWLER Follow up: T he following medications were removed from the medication list: Liothyronine Sodium 25 Mcg Tabs (Liothyronine sodium) ..... 1 tab daily Albino Maynard MD Follow up: O rders: E KG (CPT-45465) Albino Maynard MD Follow up: O rders: C omplete Echo (CPT-43102) Albino Maynard MD Follow up: O rders: S TR - Adenosine (83468) Albino Maynard MD follow up: H er updated medication list for this problem includes: Liothyronine Sodium 25 Mcg Tabs (Liothyronine sodium) ..... 1 tab daily Labs Reviewed: T SH: 8.710 (08/16/2012) Chol: 187 (08/16/2012) HDL: 49 (08/06/2011) LDL: 95 (08/16/2012) T (08/06/2011) Albino Maynard MD follow up: B P today: 124/89 Prior BP: 122/79 (08/03/2012) N uclear Stress Findings: 1. Abnormal myocardial perfusion imaging after vasodilator stress with Regadenoson. 2 . Normal left ventricular size with reduced systolic function with a calculated ejection fraction of 41%. 3 . Myocardial scintigraphy demonstrates a small reversible apical wall defect consistent with ischemia. - GC (07/13/2012) C ardiac Cath: Mild diffuse distal disease in the left anterior descending. Normal circumflex of the right coronary artery. Normal left ventricular systolic function. Continue risk factor modification. [facility] (11/05/2009) T roponin I: <0.012 (01/19/2011) CHOL: 187 (08/16/2012) LDL: 95 (08/16/2012) HDL: 49 (08/06/2011) T (08/06/2011) H CT: 43.4 (05/31/2012) Platelets: 188 (05/31/2012) B UN: 21 (08/06/2011) Creat: 0.68 (05/31/2012) Glucose: 82 (08/06/2011) N a+: 142 (05/31/2012) K+: 3.8 (05/31/2012) Cl: 107 (08/06/2011) INR: 1.0 (05/31/2012) T SH: 8.710 (08/16/2012) Albino Maynard MD follow up: O rders: E KG (CPT-68846) BP today: 124/89 P rior BP: 122/79 (08/03/2012) Labs Reviewed: C reat: 0.68 (05/31/2012) C hol: 187 (08/16/2012) HDL: 49 (08/06/2011) LDL: 95 (08/16/2012) T (08/06/2011) Albino Maynard MD follow up: B P today: 124/89 Prior BP: 122/79 (08/03/2012) C HOL: 187 (08/16/2012) LDL: 95 (08/16/2012) HDL: 49 (08/06/2011) T (08/06/2011) Albino Maynard MD follow up: B P today: 124/89 Prior BP: 122/79 (08/03/2012) N uclear Stress Findings: 1. Abnormal myocardial perfusion imaging after vasodilator stress with Regadenoson. 2 . Normal left ventricular size with reduced systolic function with a calculated ejection fraction of 41%. 3 . Myocardial scintigraphy demonstrates a small reversible apical wall defect consistent with ischemia. - (07/13/2012) C ardiac Cath: Mild diffuse distal disease in the left anterior descending. Normal circumflex of the right coronary artery. Normal left ventricular systolic function. Continue risk factor modification. [facility] (11/05/2009) T roponin I: <0.012 (01/19/2011) CHOL: 187 (08/16/2012) LDL: 95 (08/16/2012) HDL: 49 (08/06/2011) T (08/06/2011) H CT: 43.4 (05/31/2012) Platelets: 188 (05/31/2012) B UN: 21 (08/06/2011) Creat: 0.68 (05/31/2012) Glucose: 82 (08/06/2011) N a+: 142 (05/31/2012) K+: 3.8 (05/31/2012) Cl: 107 (08/06/2011) INR: 1.0 (05/31/2012) T SH: 8.710 (08/16/2012) Albino Maynard MD test results- chest pain : T he following medications were removed from the medication list: [place] Thyroid 30 Mg Tabs (Thyroid) Her updated medication list for this problem includes: Liothyronine Sodium 25 Mcg Tabs (Liothyronine sodium) ..... 1 tab daily Labs Reviewed: T SH: 5.000 (05/31/2012) C hol: 188 (05/31/2012) HDL: 49 (08/06/2011) LDL: 108 (05/31/2012) T (08/06/2011) Albino Maynard MD test results- chest pain : B P today: / Prior BP: 120/88 (07/06/2012) N uclear Stress Findings: 1. Abnormal myocardial perfusion imaging after vasodilator stress with Regadenoson. 2 . Normal left ventricular size with reduced systolic function with a calculated ejection fraction of 41%. 3 . Myocardial scintigraphy demonstrates a small reversible apical wall defect consistent with ischemia. - (07/13/2012) C ardiac Cath: Mild diffuse distal disease in the left anterior descending. Normal circumflex of the right coronary artery. Normal left ventricular systolic function. Continue risk factor modification. [facility] (11/05/2009) T roponin I: <0.012 (01/19/2011) CHOL: 188 (05/31/2012) LDL: 108 (05/31/2012) HDL: 49 (08/06/2011) T (08/06/2011) H CT: 43.4 (05/31/2012) Platelets: 188 (05/31/2012) B UN: 21 (08/06/2011) Creat: 0.68 (05/31/2012) Glucose: 82 (08/06/2011) N a+: 142 (05/31/2012) K+: 3.8 (05/31/2012) Cl: 107 (08/06/2011) INR: 1.0 (05/31/2012) T SH: 5.000 (05/31/2012) Echocardiogram: Mild global left ventricular systolic hypokinesis. Mild enlargement of left ventricular chamber. There is E to A wave reversal consistent with impaired LV relaxation. Normal E/E` 11.0. Left ventricular ejection fraction is estimated at 45%. There is moderate enlargement of the left atrium. There is mild enlargement of right atrium. There is non-specific thickening of the mitral valve leaflets. Mild to moderate mitral valve regurgitation. Normal appearing tricuspid valve leaflets. There is mild tricuspid regurgitation. I VC is normal in size with normal respiratory response. Estimated peak pulmonary artery systolic pressure is 14.0 mmHg. - (08/15/2011) Albino Maynard MD test results- chest pain : P rior BP: 120/88 (07/06/2012) Labs Reviewed: C reat: 0.68 (05/31/2012) C hol: 188 (05/31/2012) HDL: 49 (08/06/2011) LDL: 108 (05/31/2012) T (08/06/2011) Albino Maynard MD test results- chest pain : T he following medications were removed from the medication list: Zocor 40 Mg Tabs (Simvastatin) ..... One tab. at bedtime BP today: / Prior BP: 120/88 (07/06/2012) C HOL: 188 (05/31/2012) LDL: 108 (05/31/2012) HDL: 49 (08/06/2011) T (08/06/2011) Albino Maynard MD test results- chest pain : B P today: / Prior BP: 120/88 (07/06/2012) N uclear Stress Findings: 1. Abnormal myocardial perfusion imaging after vasodilator stress with Regadenoson. 2 . Normal left ventricular size with reduced systolic function with a calculated ejection fraction of 41%. 3 . Myocardial scintigraphy demonstrates a small reversible apical wall defect consistent with ischemia. - (07/13/2012) C ardiac Cath: Mild diffuse distal disease in the left anterior descending. Normal circumflex of the right coronary artery. Normal left ventricular systolic function. Continue risk factor modification. [facility] (11/05/2009) T roponin I: <0.012 (01/19/2011) CHOL: 188 (05/31/2012) LDL: 108 (05/31/2012) HDL: 49 (08/06/2011) T (08/06/2011) H CT: 43.4 (05/31/2012) Platelets: 188 (05/31/2012) B UN: 21 (08/06/2011) Creat: 0.68 (05/31/2012) Glucose: 82 (08/06/2011) N a+: 142 (05/31/2012) K+: 3.8 (05/31/2012) Cl: 107 (08/06/2011) INR: 1.0 (05/31/2012) T SH: 5.000 (05/31/2012) Albino Maynard MD hosp f/u : T he following medications were removed from the medication list: Synthroid 75 Mcg Tabs (Levothyroxine sodium) ..... One tab. daily Her updated medication list for this problem includes: [place] Thyroid 30 Mg Tabs (Thyroid) Labs Reviewed: C hol: 213 (08/06/2011) HDL: 49 (08/06/2011) LDL: 134 MG/DL (CALC) (08/06/2011) T (08/06/2011) Albino Maynard MD hosp f/u : T he following medications were removed from the medication list: Carvedilol 6.25 Mg Tabs (Carvedilol) ..... One tab. twice daily Aspirin 81 Mg Tabs (Aspirin) ..... One tab. daily BP today: 120/88 Prior BP: 103/68 (03/16/2012) N uclear Stress Findings: 1. Regadenoson mediated myocardial perfusion study 2 . Abnormal left ventricular systolic function with a calculated ejection fraction of 44%. 3 . Myocardial scintigraphy demonstrates small reversible apical defect consistent with ischemia (01/28/2011) C ardiac Cath: Mild diffuse distal disease in the left anterior descending. Normal circumflex of the right coronary artery. Normal left ventricular systolic function. Continue risk factor modification. [facility] (11/05/2009) T lindsey I: <0.012 (01/19/2011) CHOL: 213 (08/06/2011) LDL: 134 MG/DL (CALC) (08/06/2011) HDL: 49 (08/06/2011) T (08/06/2011) B UN: 21 (08/06/2011) Creat: 0.92 (08/06/2011) Glucose: 82 (08/06/2011) N a+: 141 (08/06/2011) K+: 3.9 (08/06/2011) Cl: 107 (08/06/2011) Echocardiogram: Mild global left ventricular systolic hypokinesis. Mild enlargement of left ventricular chamber. There is E to A wave reversal consistent with impaired LV relaxation. Normal E/E` 11.0. Left ventricular ejection fraction is estimated at 45%. There is moderate enlargement of the left atrium. There is mild enlargement of right atrium. There is non-specific thickening of the mitral valve leaflets. Mild to moderate mitral valve regurgitation. Normal appearing tricuspid valve leaflets. There is mild tricuspid regurgitation. I VC is normal in size with normal respiratory response. Estimated peak pulmonary artery systolic pressure is 14.0 mmHg. - (08/15/2011) Orders: S tress Test - Adenosine (17900) Albino Maynard MD hosp f/u : T he following medications were removed from the medication list: Carvedilol 6.25 Mg Tabs (Carvedilol) ..... One tab. twice daily Aspirin 81 Mg Tabs (Aspirin) ..... One tab. daily BP today: 120/88 P rior BP: 103/68 (03/16/2012) Labs Reviewed: C reat: 0.92 (08/06/2011) C hol: 213 (08/06/2011) HDL: 49 (08/06/2011) LDL: 134 MG/DL (CALC) (08/06/2011) T (08/06/2011) Albino Maynard MD hosp f/u : H er updated medication list for this problem includes: Zocor 40 Mg Tabs (Simvastatin) ..... One tab. at bedtime BP today: 120/88 Prior BP: 103/68 (03/16/2012) C HOL: 213 (08/06/2011) LDL: 134 MG/DL (CALC) (08/06/2011) HDL: 49 (08/06/2011) T (08/06/2011) Albino Maynard MD hosp f/u : T he following medications were removed from the medication list: Carvedilol 6.25 Mg Tabs (Carvedilol) ..... One tab. twice daily Aspirin 81 Mg Tabs (Aspirin) ..... One tab. daily BP today: 120/88 Prior BP: 103/68 (03/16/2012) N uclear Stress Findings: 1. Regadenoson mediated myocardial perfusion study 2 . Abnormal left ventricular systolic function with a calculated ejection fraction of 44%. 3 . Myocardial scintigraphy demonstrates small reversible apical defect consistent with ischemia (01/28/2011) C ardiac Cath: Mild diffuse distal disease in the left anterior descending. Normal circumflex of the right coronary artery. Normal left ventricular systolic function. Continue risk factor modification. [facility] (11/05/2009) T roponin I: <0.012 (01/19/2011) CHOL: 213 (08/06/2011) LDL: 134 MG/DL (CALC) (08/06/2011) HDL: 49 (08/06/2011) T (08/06/2011) B UN: 21 (08/06/2011) Creat: 0.92 (08/06/2011) Glucose: 82 (08/06/2011) N a+: 141 (08/06/2011) K+: 3.9 (08/06/2011) Cl: 107 (08/06/2011) O rders: S tress Test - Adenosine (62173) Albino Maynard MD routine: T he following medications were removed from the medication list: Ranexa 1000 Mg Tb12 (Ranolazine) ..... One tab. twice daily for chronic angina Her updated medication list for this problem includes: Carvedilol 6.25 Mg Tabs (Carvedilol) ..... One tab. twice daily Aspirin 81 Mg Tabs (Aspirin) ..... One tab. daily BP today: / Prior BP: 115/74 (09/02/2011) N uclear Stress Findings: 1. Regadenoson mediated myocardial perfusion study 2 . Abnormal left ventricular systolic function with a calculated ejection fraction of 44%. 3 . Myocardial scintigraphy demonstrates small reversible apical defect consistent with ischemia (01/28/2011) C ardiac Cath: Mild diffuse distal disease in the left anterior descending. Normal circumflex of the right coronary artery. Normal left ventricular systolic function. Continue risk factor modification. [facility] (11/05/2009) T roponin I: <0.012 (01/19/2011) CHOL: 213 (08/06/2011) LDL: 134 MG/DL (CALC) (08/06/2011) HDL: 49 (08/06/2011) T (08/06/2011) B UN: 21 (08/06/2011) Creat: 0.92 (08/06/2011) Glucose: 82 (08/06/2011) N a+: 141 (08/06/2011) K+: 3.9 (08/06/2011) Cl: 107 (08/06/2011) Echocardiogram: Mild global left ventricular systolic hypokinesis. Mild enlargement of left ventricular chamber. There is E to A wave reversal consistent with impaired LV relaxation. Normal E/E` 11.0. Left ventricular ejection fraction is estimated at 45%. There is moderate enlargement of the left atrium. There is mild enlargement of right atrium. There is non-specific thickening of the mitral valve leaflets. Mild to moderate mitral valve regurgitation. Normal appearing tricuspid valve leaflets. There is mild tricuspid regurgitation. I VC is normal in size with normal respiratory response. Estimated peak pulmonary artery systolic pressure is 14.0 mmHg. - GC (08/15/2011) Albino Maynard MD routine: H er updated medication list for this problem includes: Carvedilol 6.25 Mg Tabs (Carvedilol) ..... One tab. twice daily Aspirin 81 Mg Tabs (Aspirin) ..... One tab. daily & #13;Prior BP: 115/74 (09/02/2011) Labs Reviewed: C reat: 0.92 (08/06/2011) C hol: 213 (08/06/2011) HDL: 49 (08/06/2011) LDL: 134 MG/DL (CALC) (08/06/2011) T (08/06/2011) Albino Maynard MD routine: H er updated medication list for this problem includes: Zocor 40 Mg Tabs (Simvastatin) ..... One tab. at bedtime BP today: / Prior BP: 115/74 (09/02/2011) C HOL: 213 (08/06/2011) LDL: 134 MG/DL (CALC) (08/06/2011) HDL: 49 (08/06/2011) T (08/06/2011) Albino Maynard MD routine: T he following medications were removed from the medication list: Ranexa 1000 Mg Tb12 (Ranolazine) ..... One tab. twice daily for chronic angina Her updated medication list for this problem includes: Carvedilol 6.25 Mg Tabs (Carvedilol) ..... One tab. twice daily Aspirin 81 Mg Tabs (Aspirin) ..... One tab. daily BP today: / Prior BP: 115/74 (09/02/2011) N uclear Stress Findings: 1. Regadenoson mediated myocardial perfusion study 2 . Abnormal left ventricular systolic function with a calculated ejection fraction of 44%. 3 . Myocardial scintigraphy demonstrates small reversible apical defect consistent with ischemia (01/28/2011) C ardiac Cath: Mild diffuse distal disease in the left anterior descending. Normal circumflex of the right coronary artery. Normal left ventricular systolic function. Continue risk factor modification. [facility] (11/05/2009) T roponin I: <0.012 (01/19/2011) CHOL: 213 (08/06/2011) LDL: 134 MG/DL (CALC) (08/06/2011) HDL: 49 (08/06/2011) T (08/06/2011) B UN: 21 (08/06/2011) Creat: 0.92 (08/06/2011) Glucose: 82 (08/06/2011) N a+: 141 (08/06/2011) K+: 3.9 (08/06/2011) Cl: 107 (08/06/2011) Albino Maynard MD test results : H er updated medication list for this problem includes: Synthroid 75 Mcg Tabs (Levothyroxine sodium) ..... One tab. daily Labs Reviewed: C hol: 213 (08/06/2011) HDL: 49 (08/06/2011) LDL: 134 MG/DL (CALC) (08/06/2011) T (08/06/2011) Albino Maynard MD test results : H er updated medication list for this problem includes: Ranexa 1000 Mg Tb12 (Ranolazine) ..... One tab. twice daily for chronic angina Carvedilol 6.25 Mg Tabs (Carvedilol) ..... One tab. twice daily Aspirin 81 Mg Tabs (Aspirin) ..... One tab. daily BP today: 115/74 Prior BP: 102/73 (07/22/2011) N uclear Stress Findings: 1. Regadenoson mediated myocardial perfusion study 2 . Abnormal left ventricular systolic function with a calculated ejection fraction of 44%. 3 . Myocardial scintigraphy demonstrates small reversible apical defect consistent with ischemia (01/28/2011) C ardiac Cath: Mild diffuse distal disease in the left anterior descending. Normal circumflex of the right coronary artery. Normal left ventricular systolic function. Continue risk factor modification. [facility] (11/05/2009) T roponin I: <0.012 (01/19/2011) CHOL: 213 (08/06/2011) LDL: 134 MG/DL (CALC) (08/06/2011) HDL: 49 (08/06/2011) T (08/06/2011) B UN: 21 (08/06/2011) Creat: 0.92 (08/06/2011) Glucose: 82 (08/06/2011) N a+: 141 (08/06/2011) K+: 3.9 (08/06/2011) Cl: 107 (08/06/2011) Echocardiogram: Mild global left ventricular systolic hypokinesis. Mild enlargement of left ventricular chamber. There is E to A wave reversal consistent with impaired LV relaxation. Normal E/E` 11.0. Left ventricular ejection fraction is estimated at 45%. There is moderate enlargement of the left atrium. There is mild enlargement of right atrium. There is non-specific thickening of the mitral valve leaflets. Mild to moderate mitral valve regurgitation. Normal appearing tricuspid valve leaflets. There is mild tricuspid regurgitation. I VC is normal in size with normal respiratory response. Estimated peak pulmonary artery systolic pressure is 14.0 mmHg. - GC (08/15/2011) Albino Maynard MD test results : H er updated medication list for this problem includes: Zocor 40 Mg Tabs (Simvastatin) ..... One tab. at bedtime BP today: 115/74 Prior BP: 102/73 (07/22/2011) C HOL: 213 (08/06/2011) LDL: 134 MG/DL (CALC) (08/06/2011) HDL: 49 (08/06/2011) T (08/06/2011) Albino Maynard MD test results : H er updated medication list for this problem includes: Ranexa 1000 Mg Tb12 (Ranolazine) ..... One tab. twice daily for chronic angina Carvedilol 6.25 Mg Tabs (Carvedilol) ..... One tab. twice daily Aspirin 81 Mg Tabs (Aspirin) ..... One tab. daily BP today: 115/74 Prior BP: 102/73 (07/22/2011) N uclear Stress Findings: 1. Regadenoson mediated myocardial perfusion study 2 . Abnormal left ventricular systolic function with a calculated ejection fraction of 44%. 3 . Myocardial scintigraphy demonstrates small reversible apical defect consistent with ischemia (01/28/2011) C ardiac Cath: Mild diffuse distal disease in the left anterior descending. Normal circumflex of the right coronary artery. Normal left ventricular systolic function. Continue risk factor modification. [facility] (11/05/2009) Ronen portillo I: <0.012 (01/19/2011) CHOL: 213 (08/06/2011) LDL: 134 MG/DL (CALC) (08/06/2011) HDL: 49 (08/06/2011) T (08/06/2011) B UN: 21 (08/06/2011) Creat: 0.92 (08/06/2011) Glucose: 82 (08/06/2011) N a+: 141 (08/06/2011) K+: 3.9 (08/06/2011) Cl: 107 (08/06/2011) Albino Maynard MD test results : H er updated medication list for this problem includes: Carvedilol 6.25 Mg Tabs (Carvedilol) ..... One tab. twice daily Aspirin 81 Mg Tabs (Aspirin) ..... One tab. daily B P today: 115/74 P rior BP: 102/73 (07/22/2011) Labs Reviewed: C reat: 0.92 (08/06/2011) C hol: 213 (08/06/2011) HDL: 49 (08/06/2011) LDL: 134 MG/DL (CALC) (08/06/2011) T (08/06/2011) Albino Maynard MD chest pain: H er updated medication list for this problem includes: Synthroid 75 Mcg Tabs (Levothyroxine sodium) ..... One tab. daily Labs Reviewed: C hol: 217 (02/12/2010) T (02/12/2010) Albino Maynard MD chest pain: H er updated medication list for this problem includes: Ranexa 1000 Mg Tb12 (Ranolazine) ..... One tab. twice daily for chronic angina Carvedilol 6.25 Mg Tabs (Carvedilol) ..... One tab. twice daily Aspirin 81 Mg Tabs (Aspirin) ..... One tab. daily BP today: 102/73 Prior BP: 133/76 (04/08/2011) N uclear Stress Findings: 1. Regadenoson mediated myocardial perfusion study 2 . Abnormal left ventricular systolic function with a calculated ejection fraction of 44%. 3 . Myocardial scintigraphy demonstrates small reversible apical defect consistent with ischemia (01/28/2011) C ardiac Cath: Mild diffuse distal disease in the left anterior descending. Normal circumflex of the right coronary artery. Normal left ventricular systolic function. Continue risk factor modification. [facility] (11/05/2009) T roponin I: <0.012 (01/19/2011) CHOL: 217 (02/12/2010) T (02/12/2010) E chocardiogram: Moderate global left ventricular systolic hypokinesis . Normal left ventricular wall thickness. Mild enlargement of left ventricular chamber. Mitral inflow Doppler demonstrates pseudonormal pattern consistent with diastolic dysfunction. Left ventricular ejection fraction is estimated at 35%. There is mild enlargement of the left atrium. There is mild enlargement of right atrium. No significant valvular abnormalities. GCO (01/28/2011) Albino Maynard MD chest pain: H er updated medication list for this problem includes: Carvedilol 6.25 Mg Tabs (Carvedilol) ..... One tab. twice daily Aspirin 81 Mg Tabs (Aspirin) ..... One tab. daily & #13;BP today: 102/73 P rior BP: 133/76 (04/08/2011) Labs Reviewed: C hol: 217 (02/12/2010) T (02/12/2010) Albino Maynard MD chest pain: H er updated medication list for this problem includes: Trilipix 135 Mg Cpdr (Choline fenofibrate) ..... 1 capsule daily BP today: 102/73 Prior BP: 133/76 (04/08/2011) CHOL: 217 (02/12/2010) T (02/12/2010) Orders: C OMPREHENSIVE METABOLIC PANEL W/EGFR (07759) L IPID PANEL (7600) Albino Maynard MD chest pain: H er updated medication list for this problem includes: Ranexa 1000 Mg Tb12 (Ranolazine) ..... One tab. twice daily for chronic angina Carvedilol 6.25 Mg Tabs (Carvedilol) ..... One tab. twice daily Aspirin 81 Mg Tabs (Aspirin) ..... One tab. daily BP today: 102/73 Prior BP: 133/76 (04/08/2011) N uclear Stress Findings: 1. Regadenoson mediated myocardial perfusion study 2 . Abnormal left ventricular systolic function with a calculated ejection fraction of 44%. 3 . Myocardial scintigraphy demonstrates small reversible apical defect consistent with ischemia (01/28/2011) C ardiac Cath: Mild diffuse distal disease in the left anterior descending. Normal circumflex of the right coronary artery. Normal left ventricular systolic function. Continue risk factor modification. [facility] (11/05/2009) T lindsey I: <0.012 (01/19/2011) CHOL: 217 (02/12/2010) T (02/12/2010) Orders: E KG (CPT-34154) C OMPREHENSIVE METABOLIC PANEL W/EGFR (44152) L IPID PANEL (7600) C omplete Echo (CPT-81848) Albino Maynard MD follow up: H er updated medication list for this problem includes: Synthroid 75 Mcg Tabs (Levothyroxine sodium) ..... One tab. daily Labs Reviewed: C hol: 217 (02/12/2010) T (02/12/2010) Albino Maynard MD follow up: H er updated medication list for this problem includes: Ranexa 500 Mg Tb12 (Ranolazine) ..... One tab. twice daily for chronic angina Carvedilol 6.25 Mg Tabs (Carvedilol) ..... One tab. twice daily BP today: 133/76 Prior BP: 142/83 (02/04/2011) N uclear Stress Findings: 1. Regadenoson mediated myocardial perfusion study 2 . Abnormal left ventricular systolic function with a calculated ejection fraction of 44%. 3 . Myocardial scintigraphy demonstrates small reversible apical defect consistent with ischemia (01/28/2011) C ardiac Cath: Mild diffuse distal disease in the left anterior descending. Normal circumflex of the right coronary artery. Normal left ventricular systolic function. Continue risk factor modification. [facility] (11/05/2009) T roponin I: <0.012 (01/19/2011) CHOL: 217 (02/12/2010) T (02/12/2010) E chocardiogram: Moderate global left ventricular systolic hypokinesis . Normal left ventricular wall thickness. Mild enlargement of left ventricular chamber. Mitral inflow Doppler demonstrates pseudonormal pattern consistent with diastolic dysfunction. Left ventricular ejection fraction is estimated at 35%. There is mild enlargement of the left atrium. There is mild enlargement of right atrium. No significant valvular abnormalities. GCO (01/28/2011) Albino Maynard MD follow up: B P today: 133/76 P rior BP: 142/83 (02/04/2011) Labs Reviewed: C hol: 217 (02/12/2010) T (02/12/2010) Her updated medication list for this problem includes: Carvedilol 6.25 Mg Tabs (Carvedilol) ..... One tab. twice daily Albino Maynard MD follow up: H er updated medication list for this problem includes: Trilipix 135 Mg Cpdr (Choline fenofibrate) ..... One tab. daily - dispense as written BP today: 133/76 Prior BP: 142/83 (02/04/2011) C HOL: 217 (02/12/2010) T (02/12/2010) Albino Maynard MD follow up: H er updated medication list for this problem includes: Trilipix 135 Mg Cpdr (Choline fenofibrate) ..... One tab. daily - dispense as written BP today: 142/83 Prior BP: 113/83 (03/26/2010) C HOL: 217 (02/12/2010) T (02/12/2010) Orders: e Prescribe - Check this box if eRx is used (CPT-G8553) Albino Maynard MD follow up: H er updated medication list for this problem includes: Synthroid 75 Mcg Tabs (Levothyroxine sodium) ..... One tab. daily Labs Reviewed: C hol: 217 (02/12/2010) T (02/12/2010) Albino Maynard MD follow up: B P today: 142/83 P rior BP: 113/83 (03/26/2010) Labs Reviewed: C hol: 217 (02/12/2010) T (02/12/2010) Albino Maynard MD follow up: H er updated medication list for this problem includes: Trilipix 135 Mg Cpdr (Choline fenofibrate) ..... One tab. daily - dispense as written BP today: 142/83 Prior BP: 113/83 (03/26/2010) C HOL: 217 (02/12/2010) T (02/12/2010) Albino Maynard MD follow up: H er updated medication list for this problem includes: Ranexa 500 Mg Tb12 (Ranolazine) ..... One tab. twice daily for chronic angina BP today: 142/83 Prior BP: 113/83 (03/26/2010) N uclear Stress Findings: 1. Regadenoson mediated myocardial perfusion study 2 . Abnormal left ventricular systolic function with a calculated ejection fraction of 44%. 3 . Myocardial scintigraphy demonstrates small reversible apical defect consistent with ischemia GC (01/28/2011) C ardiac Cath: Mild diffuse distal disease in the left anterior descending. Normal circumflex of the right coronary artery. Normal left ventricular systolic function. Continue risk factor modification. [facility] (11/05/2009) T roponin I: <0.012 (01/19/2011) CHOL: 217 (02/12/2010) T (02/12/2010) E chocardiogram: Moderate global left ventricular systolic hypokinesis . Normal left ventricular wall thickness. Mild enlargement of left ventricular chamber. Mitral inflow Doppler demonstrates pseudonormal pattern consistent with diastolic dysfunction. Left ventricular ejection fraction is estimated at 35%. There is mild enlargement of the left atrium. There is mild enlargement of right atrium. No significant valvular abnormalities. GCO (01/28/2011) Albino Maynard MD f/u: H er updated medication list for this problem includes: Synthroid 75 Mcg Tabs (Levothyroxine sodium) ..... One tab. daily Labs Reviewed: C hol: 217 (02/12/2010) T (02/12/2010) Albino Maynard MD f/u: B P today: 113/83 P rior BP: 133/85 (12/25/2009) Labs Reviewed: C hol: 217 (02/12/2010) T (02/12/2010) Albino Maynard MD f/u: T he following medications were removed from the medication list: Trilipix 135 Mg Cpdr (Choline fenofibrate) ..... Once daily Her updated medication list for this problem includes: Trilipix 135 Mg Cpdr (Choline fenofibrate) ..... One tab. daily - dispense as written BP today: 113/83 Prior BP: 133/85 (12/25/2009) C HOL: 217 (02/12/2010) T (02/12/2010) Albino Maynard MD f/u: B P today: 113/83 Prior BP: 133/85 (12/25/2009) N uclear Stress Findings: 1. Regadenosine mediated myocardial perfusion study 2 . Mildly dilated left ventricle with reduced left ventricular systolic function with a calculated ejection fraction of 38%. 3 . Myocardial scintigraphy demonstrates moderate size reversible anteroapical wall defect consistent with ischemia. (10/17/2009) C ardiac Cath: Mild diffuse distal disease in the left anterior descending. Normal circumflex of the right coronary artery. Normal left ventricular systolic function. Continue risk factor modification. [facility] (11/05/2009) C HOL: 217 (02/12/2010) T (02/12/2010) E chocardiogram: TDS. Normal left ventricular systolic function. Normal left ventricular size. Normal left ventricular wall thickness. Normal E/E` 5.0. Left ventricular ejection fraction is estimated at 55%. Normal aortic root. N o significant valvular abnormalities. - (10/17/2009) Albino Maynard MD cath f/u: H er updated medication list for this problem includes: Synthroid 75 Mcg Tabs (Levothyroxine sodium) ..... One tab. daily Albino Maynard MD cath f/u: B P today: 133/85 Prior BP: 103/64 (10/19/2009) N uclear Stress Findings: 1. Regadenosine mediated myocardial perfusion study 2 . Mildly dilated left ventricle with reduced left ventricular systolic function with a calculated ejection fraction of 38%. 3 . Myocardial scintigraphy demonstrates moderate size reversible anteroapical wall defect consistent with ischemia. (10/17/2009) C ardiac Cath: Mild diffuse distal disease in the left anterior descending. Normal circumflex of the right coronary artery. Normal left ventricular systolic function. Continue risk factor modification. [facility] (11/05/2009) E chocardiogram: TDS. Normal left ventricular systolic function. Normal left ventricular size. Normal left ventricular wall thickness. Normal E/E` 5.0. Left ventricular ejection fraction is estimated at 55%. Normal aortic root. N o significant valvular abnormalities. - (10/17/2009) Albino Maynard MD cath f/u: B P today: 133/85 P rior BP: 103/64 (10/19/2009) Albino Maynard MD Antolin Barnes MD Antolin Barnes MD Antolin Barnes MD :The risks and benef its of the procedure, including but not limited the risk of heart attack, , stroke, bleeding, kidney failure, and loss of limb as well as the alternative of continued medical therapy, stress testing or bypass surgery were discussed with the patient and any present family members and the patient wishes to proceed with cardiac cath and stenting. The patient and family had opportunity to discuss this with us. Written material including informed consent was given out. s he has an abnormal stress test h ave rx a cath. Antolin Barnes MD Date Name Stress Regadenoson Complete Echo Complete Echo Monitor - Telemetry (Mobile Cardiac) Sleep Study Home Stress Regadenoson Complete Echo HEMOGLOBIN A1c VITAMIN B12 RETICULOCYTE COUNT IRON AND TOTAL IRON BINDING CAPACITY FOLATE, SERUM FERRITIN CBC (INCLUDES DIFF/P LT) LIPID PANEL COMPREHENSIVE METABO LIC PANEL W/EGFR Cardiac Cath - Left - GC LIPID PANEL THYROID PANEL WITH T SH, 3RD GENERATION COMPREHENSIVE METABO LIC PANEL W/EGFR BASIC METABOLIC PANE L W/EGFR THYROID PANEL WITH T SH, 3RD GENERATION Complete Echo STR - Adenosine LIPID PANEL Stress Test - Adenos ine COMPREHENSIVE METABO LIC PANEL W/EGFR LIPID PANEL Complete Echo LIPID PANEL COMPREHENSIVE METABO LIC PANEL W/EGFR NMR LipoProfile Cardiac Cath - GC HISTORY OF PROCEDURES Procedure Date Procedure Name Provider Procedure Notes S tatus EKG Albino Maynard MD complete d EKG Albino Maynard MD complete d EKG Albino Maynard MD complete d SNOMED-CT: 663851161 [id number] Current Medications Documented Albino Maynard MD completed EKG Albino Maynard MD complete d SNOMED-CT: 103080337 829911 Current Medications Documented Albino Maynard MD completed SNOMED-CT: 401859053 289256 Current Medications Documented Albino Maynard MD completed EKG Albino Maynard MD complete d EKG Albino Maynard MD complete d EKG Albino Maynard MD complete d EKG Albino Maynard MD complete d ePrescribe - Check t his box if eRx is used Albino Maynard MD completed ePrescribe - Check t his box if eRx is used Albino Maynard MD completed
--- OUTSIDE RECORDS SUMMARY | 2025-05-03 08:26 | XMS_ITS | Continuity of Care Document ---
Author Organization [facility] Address [address] [place] [address] Phone Care Team Providers Care Credit Resolution Representative Name Role Phone Luiza Longoria Unavailable Unavailable Advance Directives Directive Yes / No Effective Date File Name No Information Encounters Encounter Description Practice Location Reason(s) For Visit Diagnoses Date Provider Providers Copied on Encounter [facility], [id number] [place] [address] [address], [place], [place], [id number], [place] tel:[phone] SEC [facility] No Information [address] [facility] , [address], [place], [address], [place]. tel:[phone] Family History Family Member Type Diagnosis Age At Onset No Information Payers Payer name Insurance type Covered democrat ID Authoriza tion(s) No Information Social History [...]
--- OUTSIDE RECORDS SUMMARY | 2025-05-03 08:26 | XMS_ITS | Clinical Summary ---
Author Organization [facility] Address [address] [place] [address] Care Team Providers Care Nurse Ob Name Role Phone Unavailable Primary Care Provider Unavailabl e Social History Tobacco Use Types Packs/Day Years Used Date Smoking Tobacco: Never Assessed Comments Unknown Sex and Gender Information Value Date Recorded Sex Assigned at Not on file Legal Sex Female 11:32 AM CDT Gender Identity Not on file Sexual Orientation Not on file Plan of Treatment Health Maintenance Due Date Last Done Comments DEXA Bone Density 1945 Hepatitis C Virus (HCV) Screening 1945 Pneumococcal Immunization (50+ years) (1 of 1 - PCV) 01/31/1996 Zoster Immunization (1 of 2) 01/31/1996 Respiratory Syncytial Virus (RSV) Immunization (Adult) (1 - 1-dose 75+ series) 2021 Influenza Immunization (#1) 07/31/202408/30, 10/08/2016, 10/02/2016, Additional history exists SARS-COV-2 Immunization ( season) 2024 DTaP/Tdap/Td Immunization Discontinued 03/30/2017 TdaP Immunization Completed 03/30/2017 Hepatitis B Immunization Aged Out No longer eligible based on patient's age to complete this topic Meningococcal Immunization (ACWY) Aged Out No longer eligible based on patient's age to complete this topic Rotavirus Immunization Aged Out No lo nger eligible based on patient's age to complete this topic
--- NOTE | 2025-05-03 08:37 | ED.SOB ---
HPI - SOB/Dyspnea General Chief Complaint: Shortness of Breath/Dyspnea Stated Complaint: shortness of breath Time Seen by Provider: 05/03/25 08:28 History of Present Illness HPI Narrative: Patient presents here with shortness of breath on exertion, she states that this happens to her every time she exerts herself, happened when she takes walks, or when she is making her bed, and sometimes when she is at the grocery store backing her groceries, and resolves when she gets some rest. She has had extensive workup for this in the past with cardiology that has been inconclusive. The she had another shortness of breath episode while she was at the orthopedic surgeon office getting her knee injection, and he asked her to go to the emergency room. Now that she is here she feels better again. Related Data Allergies Allergy/AdvReac Type Severity Reaction Status Date / Time No Known Allergies Allergy Verified 05/03/25 08:33 Review of Systems Review of Systems: All systems reviewed & are unremarkable except as noted in HPI and below PMFSH Past Medical History Medical History Hyperlipidemia Cerebellar stroke Rectal pain Abnormal crack or tear of anus Irritable bowel syndrome with constipation Epigastric burning sensation Nausea LLQ abdominal pain Thyroid disorder Anxiety Surgical History Surgical History H/O removal of cyst 09/2024 cyst removal above eye History of rectal surgery H/O wrist surgery Hx of cholecystectomy History of hysterectomy Family History Family History Mother Diabetes mellitus Thyroid disorder Sibling Diabetes mellitus Grandparent Diabetes mellitus Thyroid disorder Father Heart disease Thyroid disorder Social History Social History Smoking status: Never smoker Second hand tobacco smoke exposure: Yes Alcohol intake: never Substance use: never Substance use type: does not use Do You Feel Safe in your Home?: Yes Lack of Transportation: No Lack of Food: Never True Current Housing: I Have Housing Concerned About Future Housing: No Difficulty Paying Gas/Electric Bills: No Difficulty Paying for Meds: No Currently Unemployed: No Education: High School Diploma/GED Difficulty w/ Childcare or Family Care: No Living arrangements: with family Occupation/Education: retired 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 Gender identity (if verbalized by the patient): Female Spiritual care concerns: No Exam Narrative: EXAMINATION OF ORGAN SYSTEMS/BODY AREAS: Constitutional: Vital signs per nursing GENERAL:[No acute distress, non-toxic appearing.] HEAD: Normal with no signs of head trauma. EYES: EOMI, conjunctiva normal ENT: Hearing grossly intact LUNGS: Nonlabored breathing. HEART: [Regular rate and rhythm] ABD: [Soft], [nontender to palpation] EXT: Normal range of motion SKIN: [No rashes or lesions.] NEURO: [Alert and oriented x 3. No gross focal sensory or strength deficits.] PSYCH: Normal affect Course Vital Signs Vital signs: Vital Signs Temperature 97.7 F 05/03/25 08:26 Pulse Rate 77 05/03/25 08:26 Respiratory Rate 20 05/03/25 08:26 Blood Pressure 144/71 H 05/03/25 08:26 Pulse Oximetry 98 05/03/25 08:26 Oxygen Delivery Room Air 05/03/25 08:26 Temperature 97.7 F 05/03/25 08:26 Pulse Rate 72 05/03/25 10:30 Respiratory Rate 16 05/03/25 10:30 Blood Pressure 167/92 H 05/03/25 10:30 Pulse Oximetry 99 05/03/25 10:30 Oxygen Delivery Room Air 05/03/25 08:26 MDM - SOB/Dyspnea MDM Narrative Medical decision making narrative: Patient presents here with shortness of breath on exertion, she states that this happens to her every time she exerts herself. Has already had extensive negative workup with Cardiology. She feels great now that she is here, really only came here because her orthopedist told her to, is asymptomatic now, I did obtain basic workup including EKG, chest x-ray, troponins which were all negative. EKG on my independent interpretation shows normal sinus rate 80, SD 140, QRS 145, QTC 495, no ST elevations or depressions or signs of acute ischemia or arrhythmia, she does have a right bundle-branch block Chest x-ray on my independent interpretation without any obvious signs of cardiomegaly, consolidations Patient on re-evaluation still well-appearing, I did offer follow-up to transportation refrigeration technician to try to find out what else we causing her breathing issues. Patient agreeable to this plan with return precautions Lab Data 05/03/25 08:38 05/03/25 09:02 Labs: Lab Results 05/03/25 05/03/25 05/03/25 Range/Units 08:38 09:01 09:02 WBC 4.9 (4.5-10.0) K/mm3 RBC 4.73 (4.2-5.4) M/mm3 Hgb 13.4 (12.0-15.0) g/dL Hct 42.5 (37.0-47.0) % MCV 89.9 (80-100) fl MCH 28.3 (26-34) pg MCHC 31.5 L (32-36) g/dl RDW 12.7 (11.5-14.5) % Plt Count 176 (150-375) k/mm3 MPV 9.1 (7.4-10.4) fl Immature Gran % (Auto) 0.4 (0-0.5) % Neut % (Auto) 62.9 (45.5-73.1) % Lymph % (Auto) 25.8 (18.3-44.2) % Noble % (Auto) 8.1 (2.6-8.5) % Eos % (Auto) 2.0 (0-4.4) % Baso % (Auto) 0.8 (0.2-1.2) % Lymph # (Auto) 1.27 (0.9-3.2) K/mm3 Noble # (Auto) 0.4 (0.1-0.6) K/mm3 Eos # (Auto) 0.1 (0-0.3) K/mm3 Baso # (Auto) 0.0 (0.0-0.1) K/mm3 Abs Immat Gran (auto) 0.02 (0.00-0.031) K/mm3 Absolute Neuts (auto) 3.1 (1.3-6.7) K/mm3 Absolute Nucleated RBC 0.000 (0.0-0.012) K/mm3 Nucleated RBC % 0.0 (0.0-0.2) % Sodium 138 (137-145) mmol/L Potassium 3.8 (3.4-5.0) mmol/L Chloride 108 H (98-107) mmol/L Carbon Dioxide 23 (22-30) mmol/L Anion Gap 7 (4-12) mmol/L BUN 16 (7-17) mg/dL Creatinine 0.83 (0.7-1.0) mg/dL Estim Creat Clear Calc 56 ml/min Estimated GFR > 60 (59 - ) Glucose 133 H (65-110) mg/dL Calcium 8.6 (8.4-10.2) mg/dL Total Bilirubin 0.5 (0.2-1.3) mg/dL AST 26 (14-36) U/L ALT 16 (6-35) U/L Alkaline Phosphatase 61 (38-126) U/L Troponin I < 0.012 (0.000-0.034) ng/mL Total Protein 6.7 (6.3-8.2) g/dL Albumin 3.7 (3.5-5.1) g/dL Discharge Plan Discharge Clinical Impression: Dyspnea on exertion Patient Disposition: Home Condition: Stable Instructions: Dyspnea (ED) Additional Instructions: Please follow up with your doctor and transportation refrigeration technician; you can always return for any further issues. Patient Language: Albanian Prescriptions: No Action levothyroxine 100 mcg tablet 100 mcg PO DAILY Qty: 90 1RF hydrocodone-acetaminophen 5-325 mg tablet 1 tablet PO Q6H PRN (Reason: pain) Qty: 45 0RF Follow-up/Referrals: Angie Stewart MD [Primary Care Provider] - Doyle Robertson MD [Physician] - 2 Days
[2025-05-03 08:44] LABS: Basophils Percent Auto 0.8 % (0.2-1.2); Eosinophils Absolute Auto 0.1 K/mm3 (0-0.3); Hematocrit 42.5 % (37.0-47.0); Hemoglobin 13.4 g/dL (12.0-15.0); Immature Granulocyte Absolute 0.02 K/mm3 (0.00-0.031); Immature Granulocyte Percent A 0.4 % (0-0.5); Lymphocytes Absolute Auto 1.27 K/mm3 (0.9-3.2); Lymphocytes Percent Auto 25.8 % (18.3-44.2); Mean Corpuscular HGB Conc 31.5 g/dl (32-36); Mean Corpuscular Hemoglobin 28.3 pg (26-34); Mean Corpuscular Volume 89.9 fl (80-100); Mean Platelet Volume 9.1 fl (7.4-10.4); Monocytes Absolute Auto 0.4 K/mm3 (0.1-0.6); Monocytes Percent Auto 8.1 % (2.6-8.5); Neutrophils Absolute Auto 3.1 K/mm3 (1.3-6.7); Neutrophils Percent Auto 62.9 % (45.5-73.1); Platelet Count Result 176 k/mm3 (150-375); Red Blood Count 4.73 M/mm3 (4.2-5.4); Red Cell Distribution Width 12.7 % (11.5-14.5); White Blood Count 4.9 K/mm3 (4.5-10.0)
[2025-05-03 09:25] LABS: Alanine Aminotransferase 16 U/L (6-35); Albumin Level 3.7 g/dL (3.5-5.1); Alkaline Phosphatase 61 U/L (38-126); Anion Gap 7 mmol/L (4-12); Aspartate Amino Transferase 26 U/L (14-36); Bilirubin,Total 0.5 mg/dL (0.2-1.3); Blood Urea Nitrogen 16 mg/dL (7-17); Calcium 8.6 mg/dL (8.4-10.2); Carbon Dioxide 23 mmol/L (22-30); Chloride 108 mmol/L (98-107); Estimated CRCL calculation 56 ml/min; Estimated Glomerular Filt Rate > 60; Glucose 133 mg/dL (65-110); Potassium 3.8 mmol/L (3.4-5.0); Sodium 138 mmol/L (137-145); Total Protein 6.7 g/dL (6.3-8.2)
--- NOTE | 2025-05-03 09:34 | PC.NURSE ---
called lab to add on Trop I
--- OUTSIDE RECORDS SUMMARY | 2025-05-03 09:38 | XMS_ITS | Clinical Summary ---
Author Organization [facility] Address [address] [place] [address] Care Team Providers Care Research/Program Director Name Role Phone Nesha Yi MD Unavailable [phone] Source Comments [facility],non-[facility] Affiliates and Associated Physician Practices is amultiple site organization consisting of ambulatory clinics and hospital sitesin [place], [place], [place] and [place]. This disclosure is being madepursuant to the Care Everywhere program and may not contain all information available regarding this patient. Last updated 18.[facility] Allergies Active Allergy Reactions Criticality Noted Date Comments Adhesive Sensitivity 11/26/2017 Causes bruising Choline Fenofibrate Unknown 08/08/2011 Medications * Be aware that medications may not be up to date on this document. Alwaysverify current medications with the patient. HYDROcodone-ac etaminophen ([place]) 5-325 MG tablet Take 1 (one) tablet [...] 09/11/2017 Immunizations Immunization Administration Dates Next Due [employer] primary monoval ent 12+ yr 0.3mL Purple [...] on file Legal Sex Female 12:54 PM SPORTS THERAPIST Gender Identity Not on file Sexual Orientation Not on file Last Filed Vital Signs Vital Sign Reading Time Taken Comments Blood Pressure 136/83 02/27/2023 11:27 AM CDT Pulse 85 02/27/2023 11:27 AM CDT Temperature 36.6 C (97.8 F) 12/12/2022 11:24 AM SPORTS THERAPIST Respiratory Rate 18 12/12/2022 11:24 AM SPORTS THERAPIST Oxygen Saturation 98% 12/12/2022 11:24 AM SPORTS THERAPIST Inhaled Oxygen Concentration - - Weight 93 [...] this topic Medical Devices Implanted Type Area Windows Server Administrator Device Identifier Shelf Expiration Date Model / Serial / Lot Cmnt Bone Plc R 40gm Grn Implanted:Qty: 1 on 11/26/2017 by Vishnu Newell MD at [facility] Left: Knee [employer] 05/29/2022 [id number] / / [id number] Cmpnt Ptlr Ovl [id number] Gns2 Uhmwpe Kn Implanted:Qty: 1 on 11/26/2017 by Vishnu Newell MD at [facility] Left: Knee [employer] 09/09/2027 [id number] / / [id number] Bsplt Tib Journey 3 Kn Lt Implanted:Qty: 1 on 11/26/2017 by Vishnu Newell MD at [facility] Left: Knee [employer] 10/24/2027 [id number] / / [id number] Cmpnt Fem Kn Lt 5 Bicruciate Stab Implanted:Qty: 1 on 11/26/2017 by Vishnu Newell MD at [facility] Left: Knee [employer] 12/31/2024 [id number] / / [id number] Articular Insert Implanted:Qty: 1 on 11/26/2017 by Vishnu Newell MD at [facility] Left: Knee [employer] 03/15/2027 [id number] / / [id number] Articular Insert Implanted:Qty: 1 on 12/16/2017 by Vishnu Newell MD at [facility] Left: Knee [employer] 06/15/2027 [id number] / / [id number] Explanted Type Area Windows Server Administrator Device Identifier Shelf Expiration Date Model / Serial / Lot Vis Cut Guide Jii Kit Implanted:Qty: 1 Explanted:Qty: 1 on 11/26/2017 at [facility] Left: Knee [employer] 01/12/2018 [id number] / / [id number] Insurance AETNA AETNA MEDICARE ADV SELF PAY NO INSURANCE Member Subscriber Plan / Payer (Ef fective for All Dates) Name:Phyllis Nixon Member ID:Not on file Relation to Subscriber:Not on file Name:PHYLLIS NIXON Subscriber ID:Not on file (Home) Address: [address] [place] [id number] Payer ID:Not on file Group ID:Not on file Type:Self Pay Address: [place], [place] AETNA AETNA MEDICARE ADV Advance Directives [...] 5:11 PM 11/30/2017 1:05 PM Care Teams Research/Program Director Relationship Specialty Start Date End Date Nesha Yi MD [address] [place] [address] Family Medicine 12/15/17
--- OUTSIDE RECORDS SUMMARY | 2025-05-03 09:39 | XMS_ITS | CONTINUITY OF CARE DOCUMENT ---
Author Name varun bond Address Unknown Organization [facility] Address [address] [place] [address] Phone [phone] Care Team Providers Care Computer Hardware Engineer Name Role Phone Aleyda FOWLER, Albino Unavailable ADELAIDA WILSON MD Unavailable ADELAIDA WILSON MD Unavailable PROBLEMS Condition Status Date Provider Notes Shortness of breath (SOB) active Albino trejo MD Dizziness active Albino Maynard MD Chronic bronchitis active Albino Maynard MD NAUSEA active Albino Maynard MD CARDIOMYOPATHY-05/11 NUC ISCHEMIA EF 41 completed - Albino Maynard MD Hyperlipidemia active Albino Maynard MD HTN-08/10 ECHO MOD LAE EF 45 -10/08 ECHO NL EF 55 active ? Ablino Maynard MD EMPHYSEMA completed - Albino Maynard MD OBESITY active Antolin Barnes MD ABN NUC STRESS-10/08 NUC ISCHEMIA active ? Sonny Callahan RN CHEST PAIN active Albino Maynard MD HYPOTHYROIDISM active ? Antolin Barnes MD ENCOUNTERS Date Type Provider Location Encounter Diag nosis - In-person encounter Office Visit Albino Maynard MD [place] [facility] - In-person encounter Office Visit Albino Maynard MD [facility] - In-person encounter Office Visit Albino Maynard MD [place] Shortness of breath (SOB) - In-person encounter Office Visit Albino Maynard MD [place] Dizziness - In-person encounter Office Visit Albino Maynard MD [place] Hyperlipidemia - In-person encounter Office Visit Albino Maynard MD [place] - In-person encounter Office Visit Albino Maynard MD [place] - In-person encounter Office Visit Albino Maynard MD [place] - In-person encounter Office Visit Albino Maynard MD [place] [facility] EMPHYSEMACARDIOMYOPATHY- NUC ISCHEMIA EF 41Chronic bronchitis - In-person encounter Office Visit Albino Maynard MD [place] [facility] - In-person encounter Office Visit Albino Maynard MD [place] - In-person encounter Office Visit Albino Maynard MD [place] CHEST PAIN - In-person encounter Office Visit Albino Maynard MD [place] - In-person encounter Office Visit Albino Maynard MD [place] - In-person encounter Office Visit Albino Maynard MD [place] - In-person encounter Office Visit Albino Maynard MD [place] - In-person encounter Office Visit Albino Maynard MD [place] HTN-08/10 ECHO MOD LAE EF 45 -10/08 ECHO NL EF 55 - In-person encounter Office Visit Albino Maynard MD [place] NAUSEA - In-person encounter Office Visit Albino Maynard MD [place] [facility] CARDIOMYOPATHY-05/11 NUC ISCHEMIA EF 41 - In-person encounter Office Visit Albino Maynard MD [place] - In-person encounter Office Visit Albino Maynard MD [place] - In-person encounter Office Visit Albino Maynard MD [facility] Hyperlipidemia - In-person encounter Office Visit Antolin Barnes MD [place] HYPOTHYROIDISMCHEST PAINABN NUC STRESS-10/08 NUC ISCHEMIAOBESITY VITAL SIGNS Date Observation Value Provider Body Mass Index (Ratio) 36.09 kg/m2 Shabbir Maynard MD blood pressure, cuff size regular [facility] blood pressure, diastolic 100 mm[Hg] [facility] blood pressure, systolic 137 mm[Hg] [facility] oxygen saturation, oximetry 99 % [facility] respiratory rate E&M 16 /min [facility] iller pulse rate 80 /min [facility] weight E&M 207 [lb_av] [facility] height E&M 63.5 [in_i] [facility] Body Mass Index (Ratio) 36.09 kg/m2 Shabbir [...] Tarsha Mar pulse rate 71 /min Maru castellanoson oxygen saturation, oximetry 93 % Maru Mar respiratory rate E&M 18 /min Collins Mar Body Mass Index (Ratio) 40.13 kg/m2 Arin Mar weight E&M 230.2 [lb_av] Maru russell Body Mass Index (Ratio) 38.18 kg/m2 Anea rose mary [facility] blood pressure, diastolic 89 mm[Hg] An eatris [facility] blood pressure, systolic 142 mm[Hg] Ane atris Brown pulse rate 78 /min Aneatris Brown oxygen saturation, oximetry 97 % Aneatris Brown respiratory rate E&M 17 /min Aneatri s Brown weight E&M 219 [lb_av] Aneatris Brown Body Mass Index (Ratio) 34.87 kg/m2 Anea rose mary [facility] blood pressure, diastolic 91 mm[Hg] An eatris [facility] blood pressure, systolic 137 mm[Hg] Ane atris [...] Callahan RN pulse rate 71 /min Sonny Callahan RN oxygen saturation, oximetry [...] blood pressure, systolic 103 mm[Hg] Fel icia Newport pulse rate 80 /min Flor Newport oxygen saturation, oximetry 97 % Flor Aurelia [...] - 23.0 blood glucose, random 108.0 mg/dL [facility] 74[facility] - 99.0 High red blood cell distribution width, size density 44.8 fL [facility] - immature granulocytes, percentage of total cells, blood 0.7 % [facility] - nucleated red blood cells as percent of blood leukocytes 0.0 % [facility] - red blood cell (erythrocyte) count, per high power field 0.0 10*3/UL [facility] - eosinophils as percent of blood leukocytes 2.5 % [facility] - neutrophils as percent of blood leukocytes 73.0 % [facility] - Absolute Neutrophils 5.0 CELLS/UL [facility] 1.5 - 7.8 basophils as percent of blood leukocytes 0.6 % [facility] - Absolute Basophils 0.0 CELLS/UL [facility] 0.0 - 0.2 monocytes as percent of blood leukocytes 7.5 % [facility] - Absolute Monocytes 0.5 CELLS/UL [employer] 0.2 - 1.0 lymphocytes as percent of blood leukocytes 15.7 % [facility] - Absolute Lymphocytes 1.1 CELLS/UL [facility] 0.9 - 3.9 mean platelet volume 9.9 (?) [facility] - platelet count 267.0 THOUSAND/UL [facility] 100.0 [...] Normal thyroid stimulating hormone, serum 8.710 u[IU]/mL [facility] LDL cholesterol, serum 95 mg/dL [facility] cholesterol, serum 187 mg/dL [facility] platelet count 188 10*3/mm3 [facility] hematocrit, blood 43.4 % [facility] lipoprotein, beta, serum, point, quantitative, calculated 108 mg/dL [facility] cholesterol, serum 188 mg/dL [facility] international normalized ratio (INR) 1.0 [facility] thyroid stimulating hormone, serum 5.000 u[IU]/mL [facility] alanine aminotransferase (SGPT), serum 16 1/L [facility] aspartate aminotransferase (SGOT), serum 17 1/L [facility] creatinine, serum 0.68 mg/dL [facility] potassium, serum 3.8 mmol/L [facility] sodium, serum 142 mmol/L [facility] alanine aminotransferase (SGPT), serum 13 1/L [facility] [...] CHOLESTYRAMINE PACKET completed one pack daily - Isabel Pranav FLUOXETINE HCL 10 MG ORAL TABLET [...] Date Observation Value Provider drug use no [facility] alcohol use no [facility] passive cigarette sm marbella exposure no [facility] smoking status Never smoker [facility] drug use no Kim Ventimig ashley [facility] alcohol use no Kim Ventimig ashley [facility] smoking status Never smoker Kim Flores iglia [facility] social history E&M Marital Statu s: [...] social history E&M Marital Statu s: L rima with family/friends E thnicity: Smoking History: P [...] person. Mood and affect are normal. Sonny Callaahn RN assessment of judgme nt and insight [...] Policy type / Coverage type Daniel red green party ID AETNA MEDICARE [facility] ADVANTAGE O Medicare [id number] ADVANCE DIRECTIVES Name Date DISCUSSED - NO DECISION MADE TREATMENT PLAN Date Name Performer [id number],C,on replacemen t therapy [place] Lakisha [facility] [id number],C,will get upda karely labs from PCP [facility] [id number],C,BP 112/70 at goal [place] Lakisha [facility] [id number],C,W ith activity and associated with fatigue and episodes of chest pain-concern for angina E KG SR with RBBB H ave recommended echo to look for any LV dysfunction or WMA W ill do stress test to r/o ischemia unable to ambulate d/t chronic knee replacement. Is in need of rt knee replacement O rders: 9 9214 MOD 30-39min (CPT-93012) C omplete Echo (CPT-54182) S tress Regadenoson (CPT-75738) [facility] [id number],S, Albino trevino MD [id number],S, Albino trevino MD [id number],S, Albino trevino MD [id number],S,M ultiple negative caths after false positive stress tests. Albino Maynard MD [id number],S,ECHO normal. Albino Maynard MD [id number],S, Albino trevino MD [id number],S, Albino trevino MD [id number],S, Albino trevino MD [id number],S, Albino trevino MD [id number],N,ECHO and tele monitor Albino Maynard MD [id number],B, Albino trevino MD Cardiology Albino Maynard MD Cardiology Albino Maynard MD Cardiology Albino Maynard MD Cardiology Albino Maynard MD Cardiology Albino Maynard MD Cardiology:on replacement therap y Kim Lakisha [facility] Cardiology:will get updated labs from PCP Kim Banuelos [facility] Cardiology:BP 112/70 at goal [place] davidcelia Lakisha [facility] Cardiology:With acti vity and associated with fatigue and episodes of chest pain-concern for angina E KG SR with RBBB H ave recommended echo to look for any LV dysfunction or WMA W ill do stress test to r/o ischemia unable to ambulate d/t chronic knee replacement. Is in need of rt knee replacement O rders: 9 9214 MOD 30-39min (CPT-34749) C omplete Echo (CPT-55181) S tress Regadenoson (CPT-75138) Kim Lakisha [facility] Cardiology Albino Maynard MD Cardiology Albino Maynard MD Cardiology Albino Maynard MD Cardiology:Multiple [...] MD Follow up: O rders: E KG (CPT-08576) Albino Maynard MD Follow up: O rders: C omplete Echo (CPT-78845) Albino Maynard MD Follow up: O rders: S TR - Adenosine (47743) Albino Maynard MD follow up: H er [...] MD follow up: O rders: E KG (CPT-06594) BP today: 124/89 P rior BP: 122/79 [...] updated medication list for this problem includes: [place] Thyroid 30 Mg Tabs (Thyroid) Labs Reviewed: [...] (08/15/2011) Orders: S tress Test - Adenosine (91402) Albino Maynard MD hosp f/u : T [...] O rders: S tress Test - Adenosine (67323) Albino Maynard MD routine: T he following [...] (02/12/2010) Orders: C OMPREHENSIVE METABOLIC PANEL W/EGFR (34229) L IPID PANEL (7600) Albino Maynard MD [...] 217 (02/12/2010) T (02/12/2010) Orders: E KG (CPT-89110) C OMPREHENSIVE METABOLIC PANEL W/EGFR (30240) L IPID PANEL (7600) C omplete Echo (CPT-88123) Albino Maynard MD follow up: H er [...] EKG Albino Maynard MD complete d SNOMED-CT: [id number] 176767 Current Medications Documented Albino Maynard MD completed EKG Albino Maynard MD complete d SNOMED-CT: 437997060 956775 Current Medications Documented Albino Maynard MD completed SNOMED-CT: 395174436 009302 Current Medications Documented Albino Maynard MD completed [...]
--- OUTSIDE RECORDS SUMMARY | 2025-05-03 09:39 | XMS_ITS | Continuity of Care Document ---
Author Organization [facility] Address [address] [place] [address] Phone Care Team Providers Care Director Sales And Trade Marketing Name Role Phone Luiza Longoria Unavailable Unavailable Advance Directives Directive Yes / No Effective Date File Name No Information Encounters Encounter Description Practice Location Reason(s) For Visit Diagnoses Date Provider Providers Copied on Encounter [facility], [address] [place] [address] [address], [place], [place], [id number], [place] tel:[phone] SEC [facility] No Information [address] , [address], [place], [address], [place]. tel:[phone] Family History Family Member Type Diagnosis Age At Onset No Information Payers Payer name Insurance type Covered alliance party ID Authoriza tion(s) No Information Social [...]
--- OUTSIDE RECORDS SUMMARY | 2025-05-03 09:39 | XMS_ITS | Clinical Summary ---
Author Organization [facility] Address [address] [place] [address] Care Team Providers Care Spaghetti Press Helper Name Role Phone Unavailable Primary Care Provider [...]
[2025-05-03 10:01] LABS: Troponin I < 0.012 ng/mL (0.000-0.034)
[2025-05-03 10:30] VITALS: BP 167/92; PULSE 72; RESP 16; O2SAT 99
== END 2025-05-03 10:31 | disposition home or self-care (01) ==
PROVIDERS: Emergency Provider Emergency Medicine; PCP Family Medicine
DX: R06.00 Dyspnea, unspecified (principal); E78.5 Hyperlipidemia, unspecified; E07.9 Disorder of thyroid, unspecified; K58.1 Irritable bowel syndrome with constipation; F41.9 Anxiety disorder, unspecified; Z86.73 Personal history of transient ischemic attack (TIA), and cerebral infarction without residual deficits; Z90.49 Acquired absence of other specified parts of digestive tract; Z90.710 Acquired absence of both cervix and uterus; Z77.22 Contact with and (suspected) exposure to environmental tobacco smoke (acute) (chronic); Z79.899 Other long term (current) drug therapy; I45.10 Unspecified right bundle-branch block
CPT/HCPCS: 36415; 71045; 80053; 84484; 85025; 93005; 99284

== ENCOUNTER 2025-08-29 09:51 | Outpatient (CLI) | payer MEDICARE, SELFPAY ==
--- OUTSIDE RECORDS SUMMARY | 2001-08-17 11:30 | XMS_ITS | Continuity of Care Document ---
Author Organization [facility] Address [address] [place] [address] Phone Care Team Providers Care Retail Specialist Name Role Phone Luiza Longoria Unavailable Unavailable Advance Directives Directive Yes / No Effective Date File Name No Information Encounters Encounter Description Practice Location Reason(s) For Visit Diagnoses Date Provider Providers Copied on Encounter [facility], [id number] [place] [address] [address], [place], [place], [id number], [place] tel:[phone] [facility] No Information [address] [facility] , [address], [place], [address], [place]. tel:[phone] Family History Family Member Type Diagnosis Age At Onset No Information Payers Payer name Insurance type Covered green party ID Authoriza tion(s) No Information Social History Type Description Quantity Date Captured Comments Sex Female Smoking Status No Information Chief Complaint And Reason For Visit No Information Reason For Referral Reason For Referral No Information History Of Present Illness Encounter Date Complaint History Of Prese nt Illness No Information Functional Status Date Functional Assessmen t No Information Instructions Date Instruction Additional Infor mation No Information Assessments Type Assessment Date No Information Patient Care Teams Name Effective Dates (start - stop) Status Members No Information
--- NOTE | ~2025-08-29 | US_ITS ---
EXAMINATION: US carotid duplex BI DATE: 08/29/2025 11:10 INDICATION: Transient cerebral ischemic attack TECHNIQUE: Grayscale, color Doppler, and pulsed Doppler images of the cervical carotid arteries were obtained. The degree of vessel stenosis is placed in one of the following categories: normal, <50%, 50-69%, >=70% but less than near- occlusion, near-occlusion, or total occlusion. Note that percent stenosis relative to normal distal artery lumen diameter is indirectly measured from velocity measurements as described by Brennan, et al. Radiology 2003; 229:340-346. COMPARISON: None. FINDINGS: RIGHT: The right common carotid artery (CCA) peak systolic velocity (PSV) is 86 cm/s. The right internal carotid artery (ICA) PSV is 88 cm/s. The right ICA end- diastolic velocity (EDV) is 28 cm/s. The right ICA/CCA PSV ratio is 1.0. Grayscale and color Doppler images yield an estimate of <50% diameter reduction from plaque in the ICA. The external carotid artery (ECA) PSV is 84 cm/s. There is antegrade flow in the right vertebral artery. LEFT: The left CCA PSV is 77 cm/s. The left ICA PSV is 90 cm/s. The left ICA EDV is 30 cm/s. The left ICA/CCA PSV ratio is 1.2. Grayscale and color Doppler images yield an estimate of <50% diameter reduction from plaque in the ICA. The ECA PSV is 75 cm/s. There is antegrade flow in the left vertebral artery. IMPRESSION: 1. <50% stenosis in the right internal carotid artery. 2. <50% stenosis in the left internal carotid artery. Reviewed, dictated and finalized at location A.
--- OUTSIDE RECORDS SUMMARY | 2025-08-29 10:45 | XMS_ITS | Clinical Summary ---
Author Organization [facility] Address [address] [place] [address] Care Team Providers Care C D Stripper Name Role Phone Nesha Yi MD Unavailable [phone] Source Comments [facility],non-christian hospital Affiliates and Associated Physician Practices is amultiple site organization consisting of ambulatory clinics and hospital sitesin [place], [place], [place] and [place]. This disclosure is being madepursuant to the Care Everywhere program and may not contain all information available regarding this patient. Last updated 18.[facility] Allergies Active Allergy Reactions Criticality Noted Date Comments Adhesive Sensitivity 11/26/2017 Causes bruising Choline Fenofibrate Unknown 08/08/2011 Medications * Be aware that medications may not be up to date on this document. Alwaysverify current medications with the patient. HYDROcodone-ac etaminophen ([place]) 5-325 MG tablet Take 1 (one) tablet [...] 09/11/2017 Immunizations Immunization Administration Dates Next Due Eved primary monoval ent 12+ yr 0.3mL Purple [...] on file Legal Sex Female 12:54 PM MELLOWING MACHINE OPERATOR Gender Identity Not on file Sexual Orientation Not on file Last Filed Vital Signs Vital Sign Reading Time Taken Comments Blood Pressure 136/83 02/27/2023 11:27 AM CDT Pulse 85 02/27/2023 11:27 AM CDT Temperature 36.6 C (97.8 F) 12/12/2022 11:24 AM MELLOWING MACHINE OPERATOR Respiratory Rate 18 12/12/2022 11:24 AM MELLOWING MACHINE OPERATOR Oxygen Saturation 98% 12/12/2022 11:24 AM MELLOWING MACHINE OPERATOR Inhaled Oxygen Concentration - - Weight 93 [...] yrs (1 - 1-dose 75+ series) 2021 DEPRESSION SCREENING 11/30/2024 MEDICARE AWV CALENDAR YEAR 2024 COVID-19 VACCINE (2024- season) 2025 06/03/2022, 02/21/2021, 02/21/2021, Additional history exists INFLUENZA VACCINE (#1) 2025 , 09/10/2020, 10/04/2019, Additional history exists DTAP/TDAP/TD VACCINES [...] this topic Medical Devices Implanted Type Area Plaster Molder Device Identifier Shelf Expiration Date Model / Serial / Lot Cmnt Bone Plc R 40gm Grn Implanted:Qty: 1 on 11/26/2017 by Vishnu Newell MD at [facility] Left: Knee [employer] 05/29/2022 [id number] / / [id number] Cmpnt Ptlr Ovl [id number] Gns2 Uhmwpe Kn Implanted:Qty: 1 on 11/26/2017 by Vishnu Newell MD at [facility] Left: Knee [employer] 09/09/2027 [id number] / / [id number] Bsplt Tib Journey 3 Kn Lt Implanted:Qty: 1 on 11/26/2017 by Vishnu Newell MD at [facility] Left: Knee [employer] 10/24/2027 [id number] / / [id number] Cmpnt Fem Kn Lt 5 Bicruciate Stab Implanted:Qty: 1 on 11/26/2017 by Vishnu Newell MD at [facility] Left: Knee [employer] 12/31/2024 [id number] / / [id number] Articular Insert Implanted:Qty: 1 on 11/26/2017 by Vishnu Newell MD at [facility] Left: Knee [employer] 03/15/2027 [id number] / / [id number] Articular Insert Implanted:Qty: 1 on 12/16/2017 by Vishnu Newell MD at [facility] Left: Knee [employer] 06/15/2027 [id number] / / [id number] Explanted Type Area Plaster Molder Device Identifier Shelf Expiration Date Model / Serial / Lot Vis Cut Guide Jii Kit Implanted:Qty: 1 Explanted:Qty: 1 on 11/26/2017 at [facility] Left: Knee [employer] 01/12/2018 [id number] / / [id number] Insurance AETNA AETNA MEDICARE ADV SELF PAY NO INSURANCE Member Subscriber Plan / Payer (Ef fective for All Dates) Name:Phyllis Nixon Member ID:Not on file Relation to Subscriber:Not on file Name:PHYLLIS NIXON Subscriber ID:Not on file (Home) Address: [address] [place] [id number] Payer ID:Not on file Group ID:Not on file Type:Self Pay Address: [place], [place] AETNA AETNA MEDICARE ADV Advance Directives [...] 5:11 PM 11/30/2017 1:05 PM Care Teams C D Stripper Relationship Specialty Start Date End Date Nesha Yi MD [address] [place] [address] Family Medicine 12/15/17
--- OUTSIDE RECORDS SUMMARY | 2025-08-29 10:45 | XMS_ITS | Clinical Summary ---
Author Organization [facility] Address [address] [place] [address] Care Team Providers Care Beater Out Name Role Phone Unavailable Primary Care Provider Unavailabl e Social History Tobacco Use Types Packs/Day Years Used Date Smoking Tobacco: Never Assessed Comments Unknown Sex and Gender Information Value Date Recorded Sex Assigned at Not on file Legal Sex Female 11:32 AM CDT Gender Identity Not on file Sexual Orientation Not on file Plan of Treatment Health Maintenance Due Date Last Done Comments Hepatitis C Virus (HCV) Screening 1945 Pneumococcal Immunization (50+ years) (1 of 1 - PCV) 01/31/1996 Zoster Immunization (1 of 2) 01/31/1996 Respiratory Syncytial Virus (RSV) Immunization (Adult) (1 - 1-dose 75+ series) 2021 Influenza Immunization (#1) 07/31/202508/30, 10/08/2016, 10/02/2016, Additional history exists SARS-COV-2 Immunization ( season) 2025 DTaP/Tdap/Td Immunization Discontinued 03/30/2017 TdaP Immunization Completed 03/30/2017 Hepatitis B Immunization Aged Out No longer eligible based on patient's age to complete this topic Human Papillomavirus (HPV) Immunization Aged Out No longer eligible based on patient's age to complete this topic Meningococcal Immunization (ACWY) Aged Out No longer eligible based on patient's age to complete this topic Rotavirus Immunization Aged Out No lo nger eligible based on patient's age to complete this topic
== END 2025-08-29 09:52 | disposition home or self-care (01) ==
PROVIDERS: PCP Family Medicine; Visit Provider Student in an Organized Health Care Education/Training Program
DX: I65.23 Occlusion and stenosis of bilateral carotid arteries (principal)
CPT/HCPCS: 93880

== ENCOUNTER 2025-09-20 12:25 | Outpatient (CLI) | payer MEDICARE, SELFPAY ==
--- NOTE | ~2025-09-20 | MR_ITS ---
EXAMINATION: MR brain/brain stem wo/w con DATE: 09/20/2025 13:25 INDICATION: Transient cerebral ischemic attack TECHNIQUE: Magnetic resonance imaging (MRI) of the brain and brainstem was performed without and with 19 mL Multihance intravenous contrast. Sequences included sagittal and axial T1-weighted SE, axial diffusion-weighted FS SE, axial T2*-weighted GRE, axial T2-weighted FLAIR, and axial T2-weighted FSE. Postcontrast axial and coronal T1-weighted SE was obtained. Apparent diffusion coefficient (ADC) maps were created. COMPARISON: 08/22/2024 FINDINGS: There are no areas of restricted diffusion to suggest acute infarction. Unchanged small old infarct in the right cerebellar hemisphere No intracranial hemorrhage or abnormal intracranial mass lesion. There are scattered areas of nonspecific increased T2-weighted signal intensity in the cerebral white matter, predominantly involving the deep and periventricular white matter. There are no intraparenchymal signal abnormalities seen on the other pulse sequences. The ventricles are symmetric and normal in size. There are no abnormal extra-axial fluid collections. Flow voids are seen in the cerebral arteries on the T2- weighted sequences consistent with their expected patency. Changes of bilateral intraocular lens replacement. Visualized orbits and soft tissues are unremarkable. There are no areas of abnormal enhancement on the post contrast images. IMPRESSION: 1. 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 No acute intracranial process. 2. Mild scattered nonspecific white matter T2 hyperintensity consistent with chronic small vessel ischemic disease. Reviewed, dictated and finalized at location A. IMPRESSION: 1. 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 No acute intracranial pr ocess. 2. Mild scattered nonspecific white matter T2 hyperintensity consistent with ch ronic small vessel ischemic disease.
== END 2025-09-20 12:26 | disposition home or self-care (01) ==
LOC: MICIMG 12:26
PROVIDERS: PCP Student in an Organized Health Care Education/Training Program; Visit Provider Student in an Organized Health Care Education/Training Program
DX: G45.9 Transient cerebral ischemic attack, unspecified (principal); R90.82 White matter disease, unspecified
CPT/HCPCS: 70553; A9577